=== PATIENT | female | born 1995 | race Caucasian/White ===

== ENCOUNTER 2017-11-21 17:19 | Inpatient (IN) | payer OTHER ==
[2017-11-21] MEDS ORDERED: IPRATROPIUM BROMIDE 0.02% NEB 0.5 MG/2.5 ML AMPUL NEB ONE (17:34)
[2017-11-21] MEDS ORDERED: MAGNESIUM SULFATE/D5W 1 GM/100 ML RTUPB IV ONE (17:34)
[2017-11-21] MEDS ORDERED: LEVALBUTEROL HCL NEB 1.25 MG/3 ML AMPUL NEB ONE (17:34)
[2017-11-21] MEDS ORDERED: NORMAL SALINE 1000 ML 1,000 ML IV ONE (17:40)
--- NOTE | 2017-11-21 17:42 | ER Document Report ---
ED Medical Screen (RME) - General Chief Complaint: Asthma Exacerbation Stated Complaint: BREATHING PROBLEMS Time Seen by Provider: 11/21/17 17:33 TRAVEL OUTSIDE OF THE [place] IN LAST 30 DAYS: No - HPI Notes: 11/21/17 17:41 History of asthma usually is admitted once a year in [place] during March states recently moved to [place] difficulty breathing the last few days found to be hypoxic in triage improved with oxygen denies any chest pain - Related Data Allergies/Adverse Reactions: albuterol Allergy (Verified 11/21/17 17:25) codeine Allergy (Verified 11/21/17 17:25) Past Medical History - Social History Frequency of alcohol use: None Drug Abuse: None Pulmonary Medical History: Reports: Hx Asthma Renal/ Medical History: Denies: Hx Peritoneal Dialysis Review of Systems - Review of Systems Respiratory: Cough, Short of breath -: Yes All other systems reviewed and negative Physical Exam - Vital signs Vitals: Temp Pulse Resp BP Pulse Ox 98.8 F 114 H 18 152/89 H 85 L 11/21/17 17:26 11/21/17 17:26 11/21/17 17:26 11/21/17 17:26 11/21/17 17:26 - Respiratory Respiratory status: Respiratory distress Chest status: Nontender, Accessory muscle use Breath sounds: Wheezing Chest palpation: Normal - Cardiovascular Rhythm: Regular, Tachycardia Heart sounds: Normal auscultation Course - Vital Signs Vital signs: Temp Pulse Resp BP Pulse Ox 98.8 F 95 18 152/89 H 100 11/21/17 17:26 11/21/17 17:27 11/21/17 17:26 11/21/17 17:26 11/21/17 17:27
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
[2017-11-21] MEDS ORDERED: METHYLPREDNISOLONE INJ 125 MG/2 ML SDV IV ONE (18:10)
[2017-11-21 18:12] LABS: ABSOLUTE BASOPHILS # (AUTO) 0.1 10^3/uL (0.0-0.2); ABSOLUTE EOSINOPHILS # (AUTO) 0.1 10^3/uL (0.0-0.6); ABSOLUTE LYMPHOCYTES (AUTO) 2.8 10^3/uL (0.5-4.7); ABSOLUTE MONOCYTES (AUTO) 0.6 10^3/uL (0.1-1.4); ABSOLUTE NEUT (AUTO) 3.2 10^3/uL (1.7-8.2); BASOPHILS % (AUTO) 0.9 % (0-2); EOSINOPHILS % (AUTO) 1.4 % (0-6); HEMATOCRIT 39.4 % (36.0-47.0); HEMOGLOBIN 13.8 g/dL (12.0-15.5); MEAN CORPUSCULAR HGB CONC 35.1 g/dL (32.0-36.0); MEAN CORPUSCULAR VOLUME 89 fl (80-97); MONOCYTES % (AUTO) 8.2 % (3-13); PLATELET COUNT 316 10^3/uL (150-450); RED BLOOD COUNT 4.45 10^6/uL (3.72-5.28); SEGMENTED NEUTROPHILS % (AUTO) 47.5 % (42-78); TOTAL CELLS COUNTED % (AUTO) 100 %; WHITE BLOOD COUNT 6.7 10^3/uL (4.0-10.5)
[2017-11-21 18:32] LABS: ANION GAP 13 (5-19); BLOOD UREA NITROGEN 9 mg/dL (7-20); CARBON DIOXIDE 21 mmol/L (22-30); CHLORIDE 108 mmol/L (98-107); GLUCOSE 103 mg/dL (75-110); POTASSIUM 3.6 mmol/L (3.6-5.0); SODIUM 141.9 mmol/L (137-145)
[2017-11-21] MEDS ORDERED: NORMAL SALINE 1000 ML 1,000 ML IV PRN (18:57)
--- NOTE | 2017-11-21 18:57 | RADIOLOGY REPORT (SQ) ---
EXAM DESCRIPTION: CHEST SINGLE VIEW COMPLETED DATE/TIME: 11/21/2017 6:42 pm REASON FOR STUDY: shortness of breath COMPARISON: None. EXAM PARAMETERS: NUMBER OF VIEWS: One view. TECHNIQUE: Single frontal radiographic view of the chest acquired. RADIATION DOSE: NA LIMITATIONS: None. FINDINGS: LUNGS AND PLEURA: No opacities, masses or pneumothorax. No pleural effusion. MEDIASTINUM AND HILAR STRUCTURES: No masses. Contour normal. HEART AND VASCULAR STRUCTURES: Heart normal in size. Normal vasculature. BONES: No acute findings. HARDWARE: None in the chest. OTHER: No other significant finding. IMPRESSION: NO ACUTE RADIOGRAPHIC FINDING IN THE CHEST. TECHNICAL DOCUMENTATION: JOB ID: [id number]- All Rights Reserved Reading location - IP/workstation name: [email or web address]
[2017-11-21] MEDS: METHYLPREDNISOLONE INJ 125 MG/2 ML SDV IV SCH (21:08)
[2017-11-21] MEDS: FAMOTIDINE 20 MG TABLET PO SCH (21:08)
[2017-11-21] MEDS: ACETAMINOPHEN 325 MG TABLET PO PRN (21:08)
[2017-11-21] MEDS: LEVALBUTEROL HCL NEB 1.25 MG/3 ML AMPUL NEB SCH (21:25)
[2017-11-22] MEDS: LEVALBUTEROL HCL NEB 1.25 MG/3 ML AMPUL NEB SCH ×5 (00:06→23:51)
[2017-11-22 04:44] LABS: ABSOLUTE LYMPHOCYTES (AUTO) 0.6 10^3/uL (0.5-4.7); ABSOLUTE NEUT (AUTO) 5.2 10^3/uL (1.7-8.2); BASOPHILS % (AUTO) 0.1 % (0-2); HEMATOCRIT 36.7 % (36.0-47.0); HEMOGLOBIN 12.8 g/dL (12.0-15.5); LYMPHOCYTES % (AUTO) 10.8 % (13-45); MEAN CORPUSCULAR HEMOGLOBIN 31.2 pg (27.0-33.4); MEAN CORPUSCULAR HGB CONC 34.9 g/dL (32.0-36.0); MEAN CORPUSCULAR VOLUME 89 fl (80-97); MONOCYTES % (AUTO) 0.7 % (3-13); PLATELET COUNT 261 10^3/uL (150-450); RED BLOOD COUNT 4.11 10^6/uL (3.72-5.28); RED CELL DISTRIBUTION WIDTH 12.2 % (11.5-14.0); SEGMENTED NEUTROPHILS % (AUTO) 88.4 % (42-78); TOTAL CELLS COUNTED % (AUTO) 100 %; WHITE BLOOD COUNT 5.8 10^3/uL (4.0-10.5)
[2017-11-22 05:00] LABS: ANION GAP 14 (5-19); BLOOD UREA NITROGEN 8 mg/dL (7-20); CALCIUM 9.6 mg/dL (8.4-10.2); CARBON DIOXIDE 16 mmol/L (22-30); CHLORIDE 110 mmol/L (98-107); GLUCOSE 178 mg/dL (75-110); POTASSIUM 4.2 mmol/L (3.6-5.0); SODIUM 139.8 mmol/L (137-145)
[2017-11-22] MEDS: METHYLPREDNISOLONE INJ 125 MG/2 ML SDV IV SCH ×3 (05:02→17:38)
[2017-11-22] MEDS ORDERED: METHYLPREDNISOLONE INJ 125 MG/2 ML SDV IV SCH (07:09)
--- NOTE | 2017-11-22 08:14 | EKG REPORT ---
SEVERITY:- NORMAL ECG - SINUS RHYTHM : Confirmed by: Annabella Cortes MD 22-Nov-2017 08:13:26
[2017-11-22] MEDS: FAMOTIDINE 20 MG TABLET PO SCH ×2 (09:08→21:28)
[2017-11-22] MEDS: ENOXAPARIN SODIUM INJ 40 MG/0.4 ML DISP.SYRIN SUBCUT SCH (09:08)
--- NOTE | 2017-11-22 09:09 | PDOC PROGRESS REPORT ---
Subjective Progress Note for:: 11/22/17 Subjective:: Patient is feeling better Still patient wheezing Patient O2 sat is running 100% on 2 L nasal cannula Patient's denied any chest pain denied any short of breath No fever no chills Reason For Visit: ASTHMA ACUTE Physical Exam Vital Signs: Temp Pulse Resp BP Pulse Ox 98.2 F 110 H 18 108/55 L 100 11/22/17 07:14 11/22/17 07:40 11/22/17 07:40 11/22/17 07:14 11/22/17 07:40 Pulse Oximeter Continuous Start: 11/21/17 19: 12 Freq: RTQ4 Status: Active Document 11/22/17 07:40 TPO (Rec: 11/22/17 07:52 TPO [email or web address]) Pulse Oximetry Assessment Oxygen Saturation (92-100) 100 Oxygen Flow Rate (L/min) 2 Oxygen Delivery Method Nasal Cannula Fraction of Inspired Oxygen (FIO2) 28 Equipment Usage Equipment in Use Continuous SpO2 Machine # 8 Intake & Output 11/21/17 11/22/17 11/23/17 06:59 06:59 06:59 Intake Total 1450 Balance 1450 Weight 65.8 kg General appearance: PRESENT: no acute distress, well-developed, well-nourished Head exam: PRESENT: atraumatic, normocephalic Eye exam: PRESENT: conjunctiva pink, EOMI, PERRLA. ABSENT: scleral icterus Ear exam: PRESENT: normal external ear exam Mouth exam: PRESENT: moist, tongue midline Neck exam: PRESENT: full ROM. ABSENT: carotid bruit, JVD, lymphadenopathy, thyromegaly Respiratory exam: PRESENT: wheezes Cardiovascular exam: PRESENT: RRR. ABSENT: diastolic murmur, rubs, systolic murmur Pulses: PRESENT: normal dorsalis pedis pul, +2 pedal pulses bilateral Vascular exam: PRESENT: normal capillary refill GI/Abdominal exam: PRESENT: normal bowel sounds, soft. ABSENT: distended, guarding, mass, organolmegaly, rebound, tenderness Rectal exam: PRESENT: deferred Musculoskeletal exam: PRESENT: ambulatory Neurological exam: PRESENT: alert, awake, oriented to person, oriented to place , oriented to time, oriented to situation, CN II-XII grossly intact. ABSENT: motor sensory deficit Psychiatric exam: PRESENT: appropriate affect, normal mood. ABSENT: homicidal ideation, suicidal ideation Skin exam: PRESENT: dry, intact, warm. ABSENT: cyanosis, rash Results Laboratory Results: 11/22/17 03:56 11/22/17 03:56 11/22/17 11/22/17 03:56 03:56 WBC 5.8 RBC 4.11 Hgb 12.8 Hct 36.7 MCV 89 MCH 31.2 MCHC 34.9 RDW 12.2 Plt Count 261 Seg Neutrophils % 88.4 H Lymphocytes % 10.8 L Monocytes % 0.7 L Eosinophils % 0.0 Basophils % 0.1 Absolute Neutrophils 5.2 Absolute Lymphocytes 0.6 Absolute Monocytes 0.0 L Absolute Eosinophils 0.0 Absolute Basophils 0.0 Sodium 139.8 Potassium 4.2 Chloride 110 H Carbon Dioxide 16 L Anion Gap 14 BUN 8 Creatinine 0.46 L Est GFR ( Amer) > 60 Est GFR (Non-Af Amer) > 60 Glucose 178 H Calcium 9.6 Magnesium 2.2 Impressions: Chest X-Ray 11/21/17 17:46 IMPRESSION: NO ACUTE RADIOGRAPHIC FINDING IN THE CHEST. Assessment & Plan - Diagnosis (1) Asthma exacerbation Qualifiers: Asthma severity: severe Asthma persistence: unspecified Qualified Code(s) : J45.901 - Unspecified asthma with (acute) exacerbation Is this a current diagnosis for this admission?: Yes Plan: Continuous IV Solu-Medrol Continues to nebulizer treatments Patient's currently on 2 L nasal cannula Consult the pulmonary due to the severity of the asthma (2) Hypoxia Is this a current diagnosis for this admission?: Yes Plan: Most likely due to the above conditions Chest d-dimer is negative Continues to nebulizer treatments Will get the EKG because of the patient's pulse was running little high most likely due to the nebulizer treatments - Time Time Spent with patient: 15-24 minutes Medications reviewed and adjusted accordingly: Yes Anticipated discharge: Home Within: Other - Inpatient Certification Medical Necessity: Significant Comorbidiites Make Outpatient Treatment Too Risky , Need For IV Fluids Post Hospital Care: D/C Supervisor Edging Documentation - Plan Summary Plan Summary: Discussed with the patient and her regarding the patient's current conditions consult the pulmonary
[2017-11-22] MEDS: ACETAMINOPHEN 325 MG TABLET PO PRN ×3 (09:19→21:28)
[2017-11-22] MEDS ORDERED: LEVALBUTEROL HCL NEB 1.25 MG/3 ML AMPUL NEB ONE (11:59)
[2017-11-22 12:11] LABS: FREE T3 3.31 pg/mL (2.77-5.27); FREE T4 (FREE THYROXINE) 0.97 ng/dL (0.78-2.19)
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
[2017-11-22 12:24] LABS: THYROID STIMULATING HORMONE 0.6 uIU/mL (0.47-4.68)
[2017-11-22 12:27] LABS: ARTERIAL BLOOD BASE EXCESS -5.2 mmol/L; ARTERIAL BLOOD HCO3 18.3 mmol/L (20-24); ARTERIAL BLOOD PCO2 29.8 mmHg (35-45); ARTERIAL BLOOD PH 7.41 (7.35-7.45); ARTERIAL BLOOD PO2 150.9 mmHg (80-100); ARTERIAL BLOOD TOTAL CO2 19.2 mmol/L (21-25)
[2017-11-22 12:28] LABS: ARTERIAL BLOOD FIO2 2L
[2017-11-22] MEDS: BUDESONIDE NEB 0.5 MG/2 ML AMPUL NEB SCH ×2 (14:03→19:54)
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
--- NOTE | 2017-11-22 16:05 | RADIOLOGY REPORT (SQ) ---
EXAM DESCRIPTION: CT HEAD WITHOUT COMPLETED DATE/TIME: 11/22/2017 3:56 pm REASON FOR STUDY: Headache And history of the fall COMPARISON: None. TECHNIQUE: Axial images acquired through the brain without intravenous contrast. Images reviewed wi th bone, brain and subdural windows. Images stored on PACS. All CT scanners at this facility use dose modulation, iterative reconstruction, and/or weight based d osing when appropriate to reduce radiation dose to as low as reasonably achievable (ALARA). [facility]: Dose Right [facility]: CareDose [facility]: Dose Right [facility]: Teradose 4D [facility]: VectorLearning RADIATION DOSE: CT Rad equipment meets quality standard of care and radiation dose reduction techniq ues were employed. CTDIvol: 48.6 mGy. DLP: 905 mGy-cm. mGy. LIMITATIONS: None. FINDINGS: VENTRICLES: Normal size and contour. CEREBRUM: No masses. No hemorrhage. No midline shift. No evidence for acute infarction. Normal gra y/white matter differentiation. No areas of low density in the white matter. CEREBELLUM: No masses. No hemorrhage. No alteration of density. No evidence for acute infarction. EXTRAAXIAL SPACES: No fluid collections. No masses. ORBITS AND GLOBE: No intra- or extraconal masses. Normal contour of globe without masses. CALVARIUM: No fracture. PARANASAL SINUSES: No fluid or mucosal thickening. SOFT TISSUES: No mass or hematoma. OTHER: No other significant finding. IMPRESSION: NORMAL BRAIN CT WITHOUT CONTRAST. EVIDENCE OF ACUTE STROKE: NO. COMMENT: Quality ID # [id number]: Final reports with documentation of one or more dose reduction techniques (e.g., Automated exposure control, adjustment of the mA and/or kV according to patient size, use of iterative reconstruction technique) TECHNICAL DOCUMENTATION: JOB ID: [id number] [employer]- All Rights Reserved Reading location - IP/workstation name: [email or web address]
--- NOTE | 2017-11-22 19:52 | EKG REPORT ---
SEVERITY:- BORDERLINE ECG - SINUS TACHYCARDIA BORDERLINE T ABNORMALITIES, ANT-LAT LEADS : Confirmed by: Annabella Cortes MD 22-Nov-2017 19:51:32
[2017-11-23] MEDS ORDERED: ZOLPIDEM TARTRATE 5 MG TABLET PO ONE (00:30)
[2017-11-23] MEDS: METHYLPREDNISOLONE INJ 125 MG/2 ML SDV IV SCH ×3 (01:50→17:27)
[2017-11-23 05:23] LABS: ABSOLUTE LYMPHOCYTES (AUTO) 0.8 10^3/uL (0.5-4.7); ABSOLUTE MONOCYTES (AUTO) 0.4 10^3/uL (0.1-1.4); ABSOLUTE NEUT (AUTO) 13.6 10^3/uL (1.7-8.2); HEMATOCRIT 35.3 % (36.0-47.0); HEMOGLOBIN 12.2 g/dL (12.0-15.5); LYMPHOCYTES % (AUTO) 5.3 % (13-45); MEAN CORPUSCULAR HEMOGLOBIN 30.9 pg (27.0-33.4); MEAN CORPUSCULAR HGB CONC 34.5 g/dL (32.0-36.0); MEAN CORPUSCULAR VOLUME 90 fl (80-97); PLATELET COUNT 280 10^3/uL (150-450); RED BLOOD COUNT 3.94 10^6/uL (3.72-5.28); RED CELL DISTRIBUTION WIDTH 12.2 % (11.5-14.0); SEGMENTED NEUTROPHILS % (AUTO) 91.7 % (42-78); TOTAL CELLS COUNTED % (AUTO) 100 %
[2017-11-23 05:24] LABS: WHITE BLOOD COUNT 14.8 10^3/uL (4.0-10.5)
[2017-11-23 05:38] LABS: BLOOD UREA NITROGEN 12 mg/dL (7-20); CALCIUM 9.6 mg/dL (8.4-10.2); CARBON DIOXIDE 20 mmol/L (22-30); GLUCOSE 133 mg/dL (75-110); POTASSIUM 4.8 mmol/L (3.6-5.0); SODIUM 141.2 mmol/L (137-145)
[2017-11-23 05:39] LABS: ANION GAP 12 (5-19); CHLORIDE 109 mmol/L (98-107)
[2017-11-23] MEDS: BUDESONIDE NEB 0.5 MG/2 ML AMPUL NEB SCH ×2 (07:49→19:36)
[2017-11-23] MEDS: LEVALBUTEROL HCL NEB 1.25 MG/3 ML AMPUL NEB SCH (07:49)
--- NOTE | 2017-11-23 08:56 | RADIOLOGY REPORT (SQ) ---
EXAM DESCRIPTION: CHEST 2 VIEWS COMPLETED DATE/TIME: 11/23/2017 8:46 am REASON FOR STUDY: sob COMPARISON: None. EXAM PARAMETERS: NUMBER OF VIEWS: two views TECHNIQUE: Digital Frontal and Lateral radiographic views of the chest acquired. RADIATION DOSE: NA LIMITATIONS: none FINDINGS: LUNGS AND PLEURA: No opacities, masses or pneumothorax. No pleural effusion. MEDIASTINUM AND HILAR STRUCTURES: No masses or contour abnormalities. HEART AND VASCULAR STRUCTURES: Heart normal size. No evidence for failure. BONES: No acute findings. HARDWARE: None in the chest. OTHER: Retained oral contrast in the visualized stomach. This finding may be secondary to gastroint estinal examination. IMPRESSION: 1. NO ACUTE RADIOGRAPHIC FINDING IN THE CHEST. TECHNICAL DOCUMENTATION: JOB ID: [id number] [employer]- All Rights Reserved Reading location - IP/workstation name: [email or web address]
--- NOTE | 2017-11-23 09:00 | ST Inp Modified Barium Swallow ---
Medical Diagnosis - Medical Diagnoses Medical Diagnosis Description & ICD-10 Code(s): asthma exacerbation, dysphagia R13.10 ST Inpatient [facility] [place] - General Date: 11/23/17 Date of Onset: 11/21/17 - History History Obtained From: Other - EMR -: Medical - Patient was admitted 11/21/17 due to shortness of breath. PMH includes asthma and gastroparesis. Patient reports no difficulty with eating or swallowing, but does state that she recently had to stop eating due to O2 levels dropping into the 70s during a meal. Medications: Medications Reviewed Allergies: Refer to medical record - patient additionally stated she was allergic to coconut - Subjective Current Nutritional Means: PO Current PO Diet: Regular Current Symptoms: Coughing Pain: Patient reports, 0/5 - Objective Assessment: Upright, Left Lateral - Food Trials Food Trials Used: Thin liquids, Pureed, Regular The Patient: Was Able to Self Feed - Assessment Labial Function: Within Normal Limits Lingual Function: Within Normal Limits Mandibular Function: Within Normal Limits Dentition: Full Laryngeal Function: clear voicing - Pharyngeal Stage Initiation of Pharyngeal Stage: Normal Decreased Laryngeal Elevation: No Reduced Velo-Pharyngeal Closure: no Reduced Pressure Generation: No Reduced Tongue Base Retraction: No Pre-Swallowing Pooling in Valleculae: None Pre-Swallowing Pooling in Pyriforms: None Reduced Thyro-Hyiod Approximation: No Reduced Epiglottic Excursion: No Reduced Pharyngeal Peristalsis: No Post Swallow Residuals in Valleculae: None Post Swallow Residuals in Pyriforms: None - Impression/Summary Laryngeal Penetration: No Tracheal Aspiration: no Patient Presents With: Normal swallow at eval Risk of Aspiration: Minimal - Recommendations Solid Diet Recommendations: Regular Liquid Diet Recommendations: Thin Regular Diet: Yes Strict Aspitarion Precautions: No Dysphagia Therapy with AGRICULTURAL ENGINEER: No - Time Total Time: 20 Total Timed Minutes: 20
--- NOTE | 2017-11-23 09:12 | RADIOLOGY REPORT (SQ) ---
EXAM DESCRIPTION: COLLEEN SWALLOW COMPLETED DATE/TIME: 11/23/2017 8:46 am REASON FOR STUDY: dysphagia exacerbation of asthma Drop in oxygen saturation during meal COMPARISON: None. TECHNIQUE: Videofluoroscopic swallowing examination was performed in conjunction with speech patholo gy. Videofluoroscopic imaging was obtained and reviewed and these are the findings: RADIATION DOSE: 44 seconds of fluoroscopy was used. 1 images saved to PACS. LIMITATIONS: None FINDINGS: The patient was brought into the fluoro room and placed upright on a modified barium swall ow chair. The patient was then given multiple consistencies mixed with barium to swallow under live fluoroscopic video guidance. According to the Speech Pathologist there was no penetration or aspirat ion. The patient had to take multiple breaks during the study due to shortness of breath IMPRESSION: NO EVIDENCE OF PENETRATION OR ASPIRATION. PATIENT REQUIRED MULTIPLE BREAKS DURING THE S TUDY DUE TO SHORTNESS OF BREATH.PLEASE SEE SPEECH PATHOLOGIST REPORT FOR OTHER FINDINGS AND RECOMMEND ATIONS. COMMENT: Quality ID [id number]: Final reports for procedures using fluoroscopy that document radiation exp osure indices, or exposure time and number of fluorographic images (if radiation exposure indices are not available) TECHNICAL DOCUMENTATION: JOB ID: [id number] [employer]- All Rights Reserved Reading location - IP/workstation name: [email or web address]
[2017-11-23] MEDS: ENOXAPARIN SODIUM INJ 40 MG/0.4 ML DISP.SYRIN SUBCUT SCH (10:05)
[2017-11-23] MEDS: FAMOTIDINE 20 MG TABLET PO SCH ×2 (10:05→21:34)
[2017-11-23] MEDS: CEFUROXIME 500 MG TABLET PO SCH ×2 (10:06→21:34)
--- NOTE | 2017-11-23 13:10 | PDOC PROGRESS REPORT ---
Subjective Progress Note for:: 11/23/17 Subjective:: Patient is currently doing fair Patient's denied any chest pain denied any shortness of the breath Patient's I believe the nebulizer makes the heart rate goes up when the Xopenex Patient's have no wheezing today Discussed with the Dr. Miller and suggest the continues to current medications patient's d-dimer is negative and no sign of any PEAs per discussed with the Dr. Miller Discussed with the patient and the family at the bedside Patient with some hyperventilation syndromes yesterday was complained of some tingling and numbness and a CT of the head was done was negative Reason For Visit: ASTHMA ACUTE Physical Exam Vital Signs: Temp Pulse Resp BP Pulse Ox 98.3 F 90 16 98/51 L 100 11/23/17 04:46 11/23/17 07:50 11/23/17 07:50 11/23/17 04:46 11/23/17 07:50 Pulse Oximeter Continuous Start: 11/21/17 19: 12 Freq: RTQ4 Status: Active Document 11/23/17 07:50 HCR (Rec: 11/23/17 08:02 HCR [id number]) Pulse Oximetry Assessment Oxygen Saturation (92-100) 100 Oxygen Flow Rate (L/min) 2 Oxygen Delivery Method Nasal Cannula Equipment Usage Equipment in Use Continuous SpO2 Machine # 8 Intake & Output 11/22/17 11/23/17 11/24/17 06:59 06:59 06:59 Intake Total 1450 836 Balance 1450 836 Weight 65.8 kg 65.3 kg General appearance: PRESENT: no acute distress, well-developed, well-nourished Head exam: PRESENT: atraumatic, normocephalic Eye exam: PRESENT: conjunctiva pink, EOMI, PERRLA. ABSENT: scleral icterus Ear exam: PRESENT: normal external ear exam Mouth exam: PRESENT: moist, tongue midline Neck exam: PRESENT: full ROM. ABSENT: carotid bruit, JVD, lymphadenopathy, thyromegaly Respiratory exam: PRESENT: clear to auscultation jon Cardiovascular exam: PRESENT: RRR. ABSENT: diastolic murmur, rubs, systolic murmur Pulses: PRESENT: normal dorsalis pedis pul, +2 pedal pulses bilateral Vascular exam: PRESENT: normal capillary refill GI/Abdominal exam: PRESENT: normal bowel sounds, soft. ABSENT: distended, guarding, mass, organolmegaly, rebound, tenderness Rectal exam: PRESENT: deferred Extremities exam: ABSENT: pedal edema Musculoskeletal exam: PRESENT: ambulatory Neurological exam: PRESENT: alert, awake, oriented to person, oriented to place , oriented to time, oriented to situation, CN II-XII grossly intact. ABSENT: motor sensory deficit Psychiatric exam: PRESENT: appropriate affect, normal mood. ABSENT: homicidal ideation, suicidal ideation Skin exam: PRESENT: dry, intact, warm. ABSENT: cyanosis, rash Results Laboratory Results: 11/23/17 04:14 11/23/17 04:14 11/23/17 11/23/17 04:14 04:14 WBC 14.8 H D RBC 3.94 Hgb 12.2 Hct 35.3 L MCV 90 MCH 30.9 MCHC 34.5 RDW 12.2 Plt Count 280 Seg Neutrophils % 91.7 H Lymphocytes % 5.3 L Monocytes % 3.0 Eosinophils % 0.0 Basophils % 0.0 Absolute Neutrophils 13.6 H Absolute Lymphocytes 0.8 Absolute Monocytes 0.4 Absolute Eosinophils 0.0 Absolute Basophils 0.0 Sodium 141.2 Potassium 4.8 Chloride 109 H Carbon Dioxide 20 L Anion Gap 12 BUN 12 Creatinine 0.49 L Est GFR ( Amer) > 60 Est GFR (Non-Af Amer) > 60 Glucose 133 H Calcium 9.6 Magnesium 2.1 Impressions: Head CT 11/22/17 00:00 IMPRESSION: NORMAL BRAIN CT WITHOUT CONTRAST. EVIDENCE OF ACUTE STROKE: NO. Chest X-Ray 11/23/17 00:00 IMPRESSION: 1. NO ACUTE RADIOGRAPHIC FINDING IN THE CHEST. Modified Barium Swallow 11/23/17 00:00 IMPRESSION: NO EVIDENCE OF PENETRATION OR ASPIRATION. PATIENT REQUIRED MULTIPLE BREAKS DURING THE STUDY DUE TO SHORTNESS OF BREATH.PLEASE SEE SPEECH PATHOLOGIST REPORT FOR OTHER FINDINGS AND RECOMMENDATIONS. Assessment & Plan - Diagnosis (1) Asthma exacerbation Qualifiers: Asthma severity: severe Asthma persistence: unspecified Qualified Code(s) : J45.901 - Unspecified asthma with (acute) exacerbation Is this a current diagnosis for this admission?: Yes Plan: Reduce the IV steroid use as needed nebulizerFollow with the pulmonary (2) Hypoxia Is this a current diagnosis for this admission?: Yes Plan: Most likely from the asthma currently getting better will try to wean off from the oxygen's (3) Sinus tachycardia Is this a current diagnosis for this admission?: Yes Plan: Patient's TSH and free T4 is all negative will get the echocardiogram (4) Gastroparesis Is this a current diagnosis for this admission?: Yes Plan: Continues of Pepcid - Time Time Spent with patient: 15-24 minutes Medications reviewed and adjusted accordingly: Yes Anticipated discharge: Home Within: Other - Inpatient Certification Medical Necessity: Need Close Monitoring Due to Risk of Patient Decompensation 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
[2017-11-23] MEDS ORDERED: ONDANSETRON 4 MG TAB.RAPDIS ONE (15:09)
--- NOTE | 2017-11-23 17:14 | Pulmonary Function Test ---
Pulmonary Function Test Date of Procedure:: 11/23/17 INDICATION:: Dyspnea Referring Provider: Dr. Francois - Report Spirometry: FVC 3.73 L 90% FEV1 3.46 L 94% FEV1/FVC % 93 predicted 89 FEF 25-75% 4.87 L 108% Impression: Normal spirometry
--- NOTE | 2017-11-23 18:02 | XCELERA REPORT ---
[address] [address] Transthoracic Echocardiogram Report Name: NETO BOJORQUEZ Age: 22 yrs Gender: Female : 1995 Patient Status: Inpatient Patient Location: [address] [place] [address] Study Date: 11/23/2017 11:00 AM Height: 69 in Weight: 143 lb BSA: 1.8 m2 Procedure: A complete two-dimensional transthoracic echocardiogram was performed (2D, M-mode, spectral and color flow Doppler). The study was technically adequate with some images being suboptimal in quality. Reason For Study: [email or web address] Ordering Physician: MARVIN ROGERS Performed By: Sindi Hairston Interpretation Summary Normal LVEF. No significant valvular abnormalities noted. No pericardial effusion noted. All chamber sizes are within normal limits. MMode/2D Measurements & Calculations RVDd: 3.2 cm LVIDd: 4.6 cm FS: 40.2 % Ao root diam: 2.3 cm IVSd: 0.74 cm LVIDs: 2.7 cm EDV(Teich): 96.8 ml Ao root area: 4.0 cm2 LVPWd: 0.72 cm ESV(Teich): 28.1 ml LA dimension: 2.9 cm EF(Teich): 70.9 % Doppler Measurements & Calculations MV E max luis: MV P1/2t max luis: Ao V2 max: LV V1 max P.2 cm/sec 98.7 cm/sec 150.9 cm/sec 6.8 mmHg MV A max luis: MV P1/2t: 64.1 msec Ao max PG: LV V1 max: 71.6 cm/sec MVA(P1/2t): 3.4 cm2 9.1 mmHg 130.3 cm/sec MV E/A: 1.4 MV dec slope: 450.9 cm/sec2 MV dec time: 0.21 sec PA V2 max: MV P1/2t-pr_phl: 110.6 cm/sec 64.1 msec PA max P.9 mmHg Left Ventricle The left ventricle is grossly normal size. There is normal left ventricular wall thickness. The left ventricular ejection fraction is normal. Doppler measurements suggest normal left ventricular diastolic function. No regional wall motion abnormalities noted. Right Ventricle The right ventricle is grossly normal size. There is normal right ventricular wall thickness. The right ventricular systolic function is normal. Atria The right atrium is normal in size. The left atrial size is normal. The interatrial septum is difficult to see, but appears to be grossly normal. Mitral Valve The mitral valve is grossly normal. There is no mitral valve stenosis. There is no mitral regurgitation noted. Aortic Valve The aortic valve is grossly normal. There is no aortic valve stenosis. No aortic regurgitation is present. Tricuspid Valve The tricuspid valve is not well visualized, but is grossly normal. There is no tricuspid stenosis. There is a trace or physiologic amount of tricuspid regurgitation. Tricuspid regurgitation jet envelope not well defined to measure RV systolic pressure accurately. Pulmonic Valve The pulmonic valve is not well seen, but is grossly normal. Great Vessels The aortic root is not well visualized but is probably normal size. The inferior vena cava appeared normal. Effusions There is no pericardial effusion. : MARVIN ROGERS > Karen Pérez
[2017-11-23] MEDS: ONDANSETRON 4 MG TAB.RAPDIS PO PRN (21:33)
[2017-11-24] MEDS: METHYLPREDNISOLONE INJ 125 MG/2 ML SDV IV SCH (02:30)
[2017-11-24 04:33] LABS: ABSOLUTE LYMPHOCYTES (AUTO) 1.4 10^3/uL (0.5-4.7); ABSOLUTE MONOCYTES (AUTO) 0.5 10^3/uL (0.1-1.4); ABSOLUTE NEUT (AUTO) 12.6 10^3/uL (1.7-8.2); BASOPHILS % (AUTO) 0.1 % (0-2); HEMATOCRIT 36.3 % (36.0-47.0); HEMOGLOBIN 12.6 g/dL (12.0-15.5); LYMPHOCYTES % (AUTO) 9.7 % (13-45); MEAN CORPUSCULAR HEMOGLOBIN 31.3 pg (27.0-33.4); MEAN CORPUSCULAR HGB CONC 34.8 g/dL (32.0-36.0); MEAN CORPUSCULAR VOLUME 90 fl (80-97); MONOCYTES % (AUTO) 3.3 % (3-13); PLATELET COUNT 300 10^3/uL (150-450); RED BLOOD COUNT 4.04 10^6/uL (3.72-5.28); RED CELL DISTRIBUTION WIDTH 12.2 % (11.5-14.0); SEGMENTED NEUTROPHILS % (AUTO) 86.9 % (42-78); TOTAL CELLS COUNTED % (AUTO) 100 %; WHITE BLOOD COUNT 14.5 10^3/uL (4.0-10.5)
[2017-11-24 04:47] LABS: ANION GAP 9 (5-19); BLOOD UREA NITROGEN 18 mg/dL (7-20); CALCIUM 9.3 mg/dL (8.4-10.2); CARBON DIOXIDE 23 mmol/L (22-30); CHLORIDE 106 mmol/L (98-107); GLUCOSE 140 mg/dL (75-110); POTASSIUM 4.4 mmol/L (3.6-5.0); SODIUM 137.8 mmol/L (137-145)
[2017-11-24] MEDS ORDERED: METHYLPREDNISOLONE INJ 125 MG/2 ML SDV IV SCH (07:25)
[2017-11-24] MEDS ORDERED: METHYLPREDNISOLONE INJ 40 MG/1 ML SDV IV SCH (08:00)
[2017-11-24] MEDS: BUDESONIDE NEB 0.5 MG/2 ML AMPUL NEB SCH ×2 (08:01→20:01)
--- NOTE | 2017-11-24 08:44 | RADIOLOGY REPORT (SQ) ---
EXAM DESCRIPTION: CTA CHEST COMPLETED DATE/TIME: 11/23/2017 9:28 pm REASON FOR STUDY: hypoxia, desat COMPARISON: None. TECHNIQUE: CT scan of the chest performed using helical scanning technique with dynamic intravenous contrast injection. Images reviewed with lung, soft tissue and bone windows. Reconstructed coronal and sagittal MPR images reviewed. Additional 3 dimensional post-processing performed to develop Maximal Intensity Projection images (AR P). All images stored on PACS. All CT scanners at this facility use dose modulation, iterative reconstruction, and/or weight based d osing when appropriate to reduce radiation dose to as low as reasonably achievable (ALARA). [facility]: Dose Right [facility]: CareDose [facility]: Dose Right [facility]: Teradose 4D [facility]: ScriptPad CONTRAST TYPE AND DOSE: contrast/concentration: Isovue 350.00 mg/ml; Total Contrast Delivered: 60.0 ml; Total Saline Delivered: 62.4 ml Contrast bolus adequate for pulmonary arteries and aorta. RENAL FUNCTION: GFR > 60. RADIATION DOSE: CT Rad equipment meets quality standard of care and radiation dose reduction techniq ues were employed. CTDIvol: 3.3 - 14.3 mGy. DLP: 512 mGy-cm. . LIMITATIONS: None. FINDINGS: LUNGS AND PLEURA: No masses, infiltrates, or pneumothorax. No pleural effusions or pleura l calcifications. AORTA AND GREAT VESSELS: No aneurysm. No dissection. HEART: No pericardial effusion. No significant coronary artery calcifications. PULMONARY ARTERIES: No emboli visualized in the main pulmonary arteries or the segmental branches. HILAR AND MEDIASTINAL STRUCTURES: No identified masses or abnormal nodes. HARDWARE: None in the chest. UPPER ABDOMEN: No significant findings. Limited exam. THYROID AND OTHER SOFT TISSUES: No masses. No adenopathy. BONES: No acute or significant finding. 3D MIPS: Confirm above findings. OTHER: No other significant finding. IMPRESSION: NORMAL CTA OF THE CHEST. NO PULMONARY EMBOLI. COMMENT: Quality ID # [id number]: Final reports with documentation of one or more dose reduction techniques (e.g., Automated exposure control, adjustment of the mA and/or kV according to patient size, use of iterative reconstruction technique) TECHNICAL DOCUMENTATION: JOB ID: [id number] [employer]- All Rights Reserved Reading location - IP/workstation name: [email or web address]
[2017-11-24] MEDS: ENOXAPARIN SODIUM INJ 40 MG/0.4 ML DISP.SYRIN SUBCUT SCH (09:47)
[2017-11-24] MEDS: CEFUROXIME 500 MG TABLET PO SCH ×2 (09:47→21:33)
[2017-11-24] MEDS: FAMOTIDINE 20 MG TABLET PO SCH ×2 (09:47→21:33)
[2017-11-24] MEDS: ONDANSETRON 4 MG TAB.RAPDIS PO PRN (09:55)
--- NOTE | 2017-11-24 10:11 | PDOC PROGRESS REPORT ---
Subjective Progress Note for:: 11/24/17 Subjective:: Patient is currently doing much better Recent CT angiogram is negative for any acute finding Since echocardiogram is all stable Once the patient's nebulizers as needed patient's heart rate is all stable Patients walk without any problems This with the patient and the family on the bedside regarding the all the test reports Reason For Visit: ASTHMA ACUTE Physical Exam Vital Signs: Temp Pulse Resp BP Pulse Ox 98.7 F 74 18 88/45 L 98 11/24/17 07:15 11/24/17 08:01 11/24/17 08:01 11/24/17 07:15 11/24/17 08:01 Pulse Oximeter Continuous Start: 11/21/17 19: 12 Freq: RTQ4 Status: Active Document 11/24/17 08:01 HCR (Rec: 11/24/17 09:41 HCR [email or web address]) Pulse Oximetry Assessment Oxygen Saturation (92-100) 98 Oxygen Delivery Method Room Air Fraction of Inspired Oxygen (FIO2) 21 Equipment Usage Equipment in Use Continuous SpO2 Machine # 8 Intake & Output 11/23/17 11/24/17 11/25/17 06:59 06:59 06:59 Intake Total 836 2700 Balance 836 2700 Weight 65.3 kg 65.2 kg General appearance: PRESENT: no acute distress, well-developed, well-nourished Head exam: PRESENT: atraumatic, normocephalic Eye exam: PRESENT: conjunctiva pink, EOMI, PERRLA. ABSENT: scleral icterus Ear exam: PRESENT: normal external ear exam Mouth exam: PRESENT: moist, tongue midline Neck exam: PRESENT: full ROM. ABSENT: carotid bruit, JVD, lymphadenopathy, thyromegaly Respiratory exam: PRESENT: clear to auscultation jon Cardiovascular exam: PRESENT: RRR. ABSENT: diastolic murmur, rubs, systolic murmur Pulses: PRESENT: normal dorsalis pedis pul, +2 pedal pulses bilateral Vascular exam: PRESENT: normal capillary refill GI/Abdominal exam: PRESENT: normal bowel sounds, soft. ABSENT: distended, guarding, mass, organolmegaly, rebound, tenderness Rectal exam: PRESENT: deferred Extremities exam: ABSENT: pedal edema Musculoskeletal exam: PRESENT: ambulatory Neurological exam: PRESENT: alert, awake, oriented to person, oriented to place , oriented to time, oriented to situation, CN II-XII grossly intact. ABSENT: motor sensory deficit Psychiatric exam: PRESENT: appropriate affect, normal mood. ABSENT: homicidal ideation, suicidal ideation Skin exam: PRESENT: dry, intact, warm. ABSENT: cyanosis, rash Results Laboratory Results: 11/24/17 04:11 11/24/17 04:11 11/24/17 11/24/17 04:11 04:11 WBC 14.5 H RBC 4.04 Hgb 12.6 Hct 36.3 MCV 90 MCH 31.3 MCHC 34.8 RDW 12.2 Plt Count 300 Seg Neutrophils % 86.9 H Lymphocytes % 9.7 L Monocytes % 3.3 Eosinophils % 0.0 Basophils % 0.1 Absolute Neutrophils 12.6 H Absolute Lymphocytes 1.4 Absolute Monocytes 0.5 Absolute Eosinophils 0.0 Absolute Basophils 0.0 Sodium 137.8 Potassium 4.4 Chloride 106 Carbon Dioxide 23 Anion Gap 9 BUN 18 Creatinine 0.54 Est GFR ( Amer) > 60 Est GFR (Non-Af Amer) > 60 Glucose 140 H Calcium 9.3 Magnesium 2.0 11/22/17 08:00 Sputum Gram Stain - Final 11/22/17 08:00 Sputum Sputum Culture - Final Impressions: Head CT 11/22/17 00:00 IMPRESSION: NORMAL BRAIN CT WITHOUT CONTRAST. EVIDENCE OF ACUTE STROKE: NO. Chest X-Ray 11/23/17 00:00 IMPRESSION: 1. NO ACUTE RADIOGRAPHIC FINDING IN THE CHEST. Chest/Abdomen CTA 11/23/17 00:00 IMPRESSION: NORMAL CTA OF THE CHEST. NO PULMONARY EMBOLI. Modified Barium Swallow 11/23/17 00:00 IMPRESSION: NO EVIDENCE OF PENETRATION OR ASPIRATION. PATIENT REQUIRED MULTIPLE BREAKS DURING THE STUDY DUE TO SHORTNESS OF BREATH.PLEASE SEE SPEECH PATHOLOGIST REPORT FOR OTHER FINDINGS AND RECOMMENDATIONS. Assessment & Plan - Diagnosis (1) Asthma exacerbation Qualifiers: Asthma severity: severe Asthma persistence: unspecified Qualified Code(s) : J45.901 - Unspecified asthma with (acute) exacerbation Is this a current diagnosis for this admission?: Yes Plan: Currently all improving this continues to IV Solu-Medrol and put on the p.o. steroids (2) Hypoxia Is this a current diagnosis for this admission?: Yes Plan: Try to wean off from the oxygen's (3) Sinus tachycardia Is this a current diagnosis for this admission?: Yes Plan: CT angiogram is negative and echocardiogram is all stable most likely related to the nebulizer treatments (4) Gastroparesis Is this a current diagnosis for this admission?: Yes Plan: Start the patient on a PPI - Time Time Spent with patient: 15-24 minutes Medications reviewed and adjusted accordingly: Yes Anticipated discharge: Home Within: within 24 hours - Inpatient Certification Medical Necessity: Need Close Monitoring Due to Risk of Patient Decompensation 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
--- NOTE | 2017-11-24 14:20 | PDOC PROGRESS REPORT ---
Subjective Progress Note for:: 11/24/17 Subjective:: I am better Reason For Visit: ASTHMA ACUTE Physical Exam Vital Signs: Temp Pulse Resp BP Pulse Ox 98.7 F 74 18 88/45 L 98 11/24/17 07:15 11/24/17 08:01 11/24/17 08:01 11/24/17 07:15 11/24/17 08:01 Pulse Oximeter Continuous Start: 11/21/17 19: 12 Freq: RTQ4 Status: Active Document 11/24/17 08:01 HCR (Rec: 11/24/17 09:41 HCR [email or web address]) Pulse Oximetry Assessment Oxygen Saturation (92-100) 98 Oxygen Delivery Method Room Air Fraction of Inspired Oxygen (FIO2) 21 Equipment Usage Equipment in Use Continuous SpO2 Machine # 8 Intake & Output 11/23/17 11/24/17 11/25/17 06:59 06:59 06:59 Intake Total 836 2700 Balance 836 2700 Weight 65.3 kg 65.2 kg General appearance: PRESENT: no acute distress, cooperative, disheveled, well- developed, well-nourished Head exam: PRESENT: atraumatic, normocephalic Eye exam: PRESENT: EOMI. ABSENT: nystagmus, periorbital swelling, scleral icterus Mouth exam: PRESENT: moist, neck supple, tongue midline Neck exam: ABSENT: carotid bruit, JVD, lymphadenopathy, thyromegaly, tracheal deviation, tracheostomy Respiratory exam: PRESENT: prolonged expiratory phas, rhonchi, unlabored, wheezes. ABSENT: rales, retraction, stridor Cardiovascular exam: PRESENT: RRR, +S1, +S2 Pulses: PRESENT: normal radial pulses GI/Abdominal exam: PRESENT: soft. ABSENT: tenderness Extremities exam: ABSENT: calf tenderness, clubbing, joint swelling Musculoskeletal exam: ABSENT: deformity, dislocation Neurological exam: PRESENT: alert, awake Psychiatric exam: PRESENT: normal mood Skin exam: PRESENT: dry, warm Results Laboratory Results: 11/24/17 04:11 11/24/17 04:11 11/24/17 11/24/17 04:11 04:11 WBC 14.5 H RBC 4.04 Hgb 12.6 Hct 36.3 MCV 90 MCH 31.3 MCHC 34.8 RDW 12.2 Plt Count 300 Seg Neutrophils % 86.9 H Lymphocytes % 9.7 L Monocytes % 3.3 Eosinophils % 0.0 Basophils % 0.1 Absolute Neutrophils 12.6 H Absolute Lymphocytes 1.4 Absolute Monocytes 0.5 Absolute Eosinophils 0.0 Absolute Basophils 0.0 Sodium 137.8 Potassium 4.4 Chloride 106 Carbon Dioxide 23 Anion Gap 9 BUN 18 Creatinine 0.54 Est GFR ( Amer) > 60 Est GFR (Non-Af Amer) > 60 Glucose 140 H Calcium 9.3 Magnesium 2.0 11/22/17 08:00 Sputum Gram Stain - Final 11/22/17 08:00 Sputum Sputum Culture - Final Impressions: Head CT 11/22/17 00:00 IMPRESSION: NORMAL BRAIN CT WITHOUT CONTRAST. EVIDENCE OF ACUTE STROKE: NO. Chest X-Ray 11/23/17 00:00 IMPRESSION: 1. NO ACUTE RADIOGRAPHIC FINDING IN THE CHEST. Chest/Abdomen CTA 11/23/17 00:00 IMPRESSION: NORMAL CTA OF THE CHEST. NO PULMONARY EMBOLI. Modified Barium Swallow 11/23/17 00:00 IMPRESSION: NO EVIDENCE OF PENETRATION OR ASPIRATION. PATIENT REQUIRED MULTIPLE BREAKS DURING THE STUDY DUE TO SHORTNESS OF BREATH.PLEASE SEE SPEECH PATHOLOGIST REPORT FOR OTHER FINDINGS AND RECOMMENDATIONS. Assessment & Plan - Diagnosis (1) Asthma exacerbation Qualifiers: Asthma severity: severe Asthma persistence: unspecified Qualified Code(s) : J45.901 - Unspecified asthma with (acute) exacerbation Is this a current diagnosis for this admission?: Yes Plan: No evidence to substantiate vocal cord dysfunction at this time 6-minute walk peak flow meter (2) Hypoxia Is this a current diagnosis for this admission?: Yes Plan: Significant improvement
--- NOTE | 2017-11-24 14:22 | PDOC PROGRESS REPORT ---
Subjective Progress Note for:: 11/23/17 Subjective:: I am not as short of breath Reason For Visit: ASTHMA ACUTE Physical Exam Vital Signs: Temp Pulse Resp BP Pulse Ox 98.5 F 99 12 101/48 L 99 11/23/17 12:00 11/23/17 12:00 11/23/17 12:00 11/23/17 12:00 11/23/17 12:00 Pulse Oximeter Continuous Start: 11/21/17 19: 12 Freq: RTQ4 Status: Active Document 11/23/17 12:00 HCR (Rec: 11/23/17 13:42 HCR [id number]) Pulse Oximetry Assessment Oxygen Saturation (92-100) 97 Oxygen Delivery Method Room Air Fraction of Inspired Oxygen (FIO2) 21 Equipment Usage Equipment in Use Continuous SpO2 Machine # 8 Intake & Output 11/22/17 11/23/17 11/24/17 06:59 06:59 06:59 Intake Total 1450 836 Balance 1450 836 Weight 65.8 kg 65.3 kg General appearance: PRESENT: no acute distress, cooperative, disheveled, well- developed, well-nourished Head exam: PRESENT: atraumatic, normocephalic Eye exam: PRESENT: conjunctiva pale, EOMI. ABSENT: nystagmus, scleral icterus Mouth exam: PRESENT: moist, neck supple, tongue midline Neck exam: ABSENT: carotid bruit, JVD, lymphadenopathy, thyromegaly, tracheal deviation, tracheostomy Respiratory exam: PRESENT: prolonged expiratory phas, rhonchi, unlabored, wheezes. ABSENT: rales, retraction, stridor, tachypnea Cardiovascular exam: PRESENT: RRR, +S1, +S2 Pulses: PRESENT: normal radial pulses GI/Abdominal exam: PRESENT: soft. ABSENT: tenderness Extremities exam: ABSENT: calf tenderness, clubbing, joint swelling Musculoskeletal exam: ABSENT: deformity, dislocation Neurological exam: PRESENT: alert, awake Psychiatric exam: PRESENT: normal mood Skin exam: PRESENT: dry, warm Results Laboratory Results: 11/23/17 04:14 11/23/17 04:14 11/23/17 11/23/17 04:14 04:14 WBC 14.8 H D RBC 3.94 Hgb 12.2 Hct 35.3 L MCV 90 MCH 30.9 MCHC 34.5 RDW 12.2 Plt Count 280 Seg Neutrophils % 91.7 H Lymphocytes % 5.3 L Monocytes % 3.0 Eosinophils % 0.0 Basophils % 0.0 Absolute Neutrophils 13.6 H Absolute Lymphocytes 0.8 Absolute Monocytes 0.4 Absolute Eosinophils 0.0 Absolute Basophils 0.0 Sodium 141.2 Potassium 4.8 Chloride 109 H Carbon Dioxide 20 L Anion Gap 12 BUN 12 Creatinine 0.49 L Est GFR ( Amer) > 60 Est GFR (Non-Af Amer) > 60 Glucose 133 H Calcium 9.6 Magnesium 2.1 11/22/17 08:00 Sputum Gram Stain - Final 11/22/17 08:00 Sputum Sputum Culture - Final Impressions: Head CT 11/22/17 00:00 IMPRESSION: NORMAL BRAIN CT WITHOUT CONTRAST. EVIDENCE OF ACUTE STROKE: NO. Chest X-Ray 11/23/17 00:00 IMPRESSION: 1. NO ACUTE RADIOGRAPHIC FINDING IN THE CHEST. Modified Barium Swallow 11/23/17 00:00 IMPRESSION: NO EVIDENCE OF PENETRATION OR ASPIRATION. PATIENT REQUIRED MULTIPLE BREAKS DURING THE STUDY DUE TO SHORTNESS OF BREATH.PLEASE SEE SPEECH PATHOLOGIST REPORT FOR OTHER FINDINGS AND RECOMMENDATIONS. Assessment & Plan - Diagnosis (1) Asthma exacerbation Qualifiers: Asthma severity: severe Asthma persistence: unspecified Qualified Code(s) : J45.901 - Unspecified asthma with (acute) exacerbation Is this a current diagnosis for this admission?: Yes Plan: Continues to improve (2) Hypoxia Is this a current diagnosis for this admission?: Yes Plan: Some improvement
[2017-11-24] MEDS: LANSOPRAZOLE 15 MG TAB.RAP.DR PO SCH (17:16)
[2017-11-24] MEDS ORDERED: PREDNISONE 20 MG TABLET PO SCH (18:00)
[2017-11-24] MEDS: LEVALBUTEROL HCL NEB 1.25 MG/3 ML AMPUL NEB PRN (20:01)
[2017-11-25 05:10] LABS: ABSOLUTE LYMPHOCYTES (AUTO) 2.3 10^3/uL (0.5-4.7); ABSOLUTE MONOCYTES (AUTO) 0.8 10^3/uL (0.1-1.4); ABSOLUTE NEUT (AUTO) 7.8 10^3/uL (1.7-8.2); BASOPHILS % (AUTO) 0.3 % (0-2); HEMATOCRIT 36.7 % (36.0-47.0); HEMOGLOBIN 12.9 g/dL (12.0-15.5); LYMPHOCYTES % (AUTO) 21.2 % (13-45); MEAN CORPUSCULAR HEMOGLOBIN 31.6 pg (27.0-33.4); MEAN CORPUSCULAR VOLUME 90 fl (80-97); MONOCYTES % (AUTO) 7.6 % (3-13); PLATELET COUNT 252 10^3/uL (150-450); RED BLOOD COUNT 4.07 10^6/uL (3.72-5.28); RED CELL DISTRIBUTION WIDTH 12.1 % (11.5-14.0); SEGMENTED NEUTROPHILS % (AUTO) 70.9 % (42-78); TOTAL CELLS COUNTED % (AUTO) 100 %
[2017-11-25 05:31] LABS: ANION GAP 12 (5-19); BLOOD UREA NITROGEN 18 mg/dL (7-20); CALCIUM 9.4 mg/dL (8.4-10.2); CARBON DIOXIDE 23 mmol/L (22-30); CHLORIDE 105 mmol/L (98-107); GLUCOSE 112 mg/dL (75-110); SODIUM 139.5 mmol/L (137-145)
[2017-11-25] MEDS: LANSOPRAZOLE 15 MG TAB.RAP.DR PO SCH (05:55)
[2017-11-25] MEDS: LEVALBUTEROL HCL NEB 1.25 MG/3 ML AMPUL NEB PRN (08:01)
[2017-11-25] MEDS: BUDESONIDE NEB 0.5 MG/2 ML AMPUL NEB SCH (08:01)
[2017-11-25 08:21] VITALS: BP 107/67
--- NOTE | 2017-11-25 12:48 | PDOC DISCHARGE SUMMARY ---
General - Admit/Disc Date/PCP Admission Date/Primary Care Provider: 11/21/17 18:48 MARVIN ROGERS MD Discharge Date: 11/25/17 - Discharge Diagnosis (1) Asthma exacerbation Is this a current diagnosis for this admission?: Yes Summary: Currently all resolving (2) Hypoxia Is this a current diagnosis for this admission?: Yes Summary: Due to the above conditions all resolved (3) Sinus tachycardia Is this a current diagnosis for this admission?: Yes Summary: Patient had a echocardiogram was all stable and a CT angiogram is all negative most likely related to the nebulizer treatment is currently all resolved (4) Gastroparesis Is this a current diagnosis for this admission?: Yes Summary: I will outpatients GI continues the Pepcid - Additional Information Discharge Diet: Regular Discharge Activity: Activity As Tolerated Prescriptions: Budesonide [Pulmicort Neb 0.5 mg/2 ml Ampul] 0.5 mg NEB RTQ12 #60 ampul.neb Famotidine [Pepcid 20 mg Tablet] 20 mg PO Q12 #60 tablet Levalbuterol HCl [Xopenex Neb 0.63 mg/3 ml Ampul] 0.63 mg NEB RTQ8HP PRN #90 vial.neb PRN Reason: Nebulizer [Nebulizer Machine] 1 each ASDIR PRN #1 kit PRN Reason: Prednisone [Deltasone 20 mg Tablet] 20 mg PO DAILY #5 tablet Home Medications: Clobetasol Propionate [Clobetasol Propionate Solution] 1 applic TP QPM 11/21/17 Budesonide [Pulmicort Neb 0.5 mg/2 ml Ampul] 0.5 mg NEB RTQ12 #60 ampul.neb 01/31 Famotidine [Pepcid 20 mg Tablet] 20 mg PO Q12 #60 tablet 11/25/17 Levalbuterol HCl [Xopenex Neb 0.63 mg/3 ml Ampul] 0.63 mg NEB RTQ8HP PRN #90 vial.neb 11/25/17 Nebulizer [Nebulizer Machine] 1 each MC ASDIR PRN #1 kit 11/25/17 Prednisone [Deltasone 20 mg Tablet] 20 mg PO DAILY #5 tablet 11/25/17 History of Present Illness History of Present Illness: NETO BOJORQUEZ is a 22 year old female This is a 22-year-old female presents with the shortness of the breath hypoxia and asthma with acute exacerbation of admitting in the hospital for further evaluation Hospital Course Hospital Course: This is a 22-year-old female present in the office with the shortness of the breath and hypoxia and patient sent to the emergency department where patient was found to have asthma with acute exacerbation admitting in the hospital start the patient on IV steroid and nebulizer treatments Patient have a allergies to the albuterol which is related to the tachycardia patient was given Xopenex and was using her Xopenex at home also given little bit elevated the heart rates and the patient's underwent for the CT angiogram was negative for any PE patient also have a 2D echo was done was negative for any acute finding Patient was put on IV steroid and a Pulmicort per the pulmonary is seen Dr. Miller This is a response very well and at this point patient's renal from the on IV to the p.o. medications patients walk in the hallway with the family and the nurses and O2 sat remained 98% on room air patient heart rate is all stable Very extensive discussion with the patient's and the family including the and the mother regarding the patient's current condition and the all the test reports and follow-up with the pulmonary as outpatients Physical Exam Vital Signs: Temp Pulse Resp BP Pulse Ox 98.2 F 70 20 107/67 96 11/25/17 08:53 11/25/17 08:53 11/25/17 08:53 11/25/17 08:53 11/25/17 08:53 Pulse Oximeter Continuous Start: 11/21/17 19: 12 Freq: RTQ4 Status: Discharge Document 11/25/17 08:00 [facility] (Rec: 11/25/17 12:02 [facility] [email or web address]) Pulse Oximetry Assessment Oxygen Saturation (92-100) 98 Oxygen Delivery Method Room Air Equipment Usage Equipment in Use Continuous SpO2 Machine # 8 Intake & Output 11/24/17 11/25/17 11/26/17 06:59 06:59 06:59 Intake Total 2700 1087 Balance 2700 1087 Weight 65.2 kg 65.2 kg General appearance: PRESENT: no acute distress, well-developed, well-nourished Head exam: PRESENT: atraumatic, normocephalic Eye exam: PRESENT: conjunctiva pink, EOMI, PERRLA. ABSENT: scleral icterus Ear exam: PRESENT: normal external ear exam Mouth exam: PRESENT: moist, tongue midline Neck exam: PRESENT: full ROM. ABSENT: carotid bruit, JVD, lymphadenopathy, thyromegaly Respiratory exam: PRESENT: clear to auscultation jon Cardiovascular exam: PRESENT: RRR. ABSENT: diastolic murmur, rubs, systolic murmur Pulses: PRESENT: normal dorsalis pedis pul, +2 pedal pulses bilateral Vascular exam: PRESENT: normal capillary refill GI/Abdominal exam: PRESENT: normal bowel sounds, soft. ABSENT: distended, guarding, mass, organolmegaly, rebound, tenderness Rectal exam: PRESENT: deferred Extremities exam: ABSENT: pedal edema Musculoskeletal exam: PRESENT: ambulatory Neurological exam: PRESENT: alert, awake, oriented to person, oriented to place , oriented to time, oriented to situation, CN II-XII grossly intact. ABSENT: motor sensory deficit Psychiatric exam: PRESENT: appropriate affect, normal mood. ABSENT: homicidal ideation, suicidal ideation Skin exam: PRESENT: dry, intact, warm. ABSENT: cyanosis, rash Results Laboratory Results: 11/25/17 04:01 11/25/17 04:01 11/25/17 11/25/17 04:01 04:01 WBC 11.0 H RBC 4.07 Hgb 12.9 Hct 36.7 MCV 90 MCH 31.6 MCHC 35.0 RDW 12.1 Plt Count 252 Seg Neutrophils % 70.9 Lymphocytes % 21.2 Monocytes % 7.6 Eosinophils % 0.0 Basophils % 0.3 Absolute Neutrophils 7.8 Absolute Lymphocytes 2.3 Absolute Monocytes 0.8 Absolute Eosinophils 0.0 Absolute Basophils 0.0 Sodium 139.5 Potassium 4.0 Chloride 105 Carbon Dioxide 23 Anion Gap 12 BUN 18 Creatinine 0.55 Est GFR ( Amer) > 60 Est GFR (Non-Af Amer) > 60 Glucose 112 H Calcium 9.4 Impressions: Head CT 11/22/17 00:00 IMPRESSION: NORMAL BRAIN CT WITHOUT CONTRAST. EVIDENCE OF ACUTE STROKE: NO. Chest X-Ray 11/23/17 00:00 IMPRESSION: 1. NO ACUTE RADIOGRAPHIC FINDING IN THE CHEST. Chest/Abdomen CTA 11/23/17 00:00 IMPRESSION: NORMAL CTA OF THE CHEST. NO PULMONARY EMBOLI. Modified Barium Swallow 11/23/17 00:00 IMPRESSION: NO EVIDENCE OF PENETRATION OR ASPIRATION. PATIENT REQUIRED MULTIPLE BREAKS DURING THE STUDY DUE TO SHORTNESS OF BREATH.PLEASE SEE SPEECH PATHOLOGIST REPORT FOR OTHER FINDINGS AND RECOMMENDATIONS. Qualifiers - * PATIENT BEING DISCHARGED WITH ANY OF THE FOLLOWING DIAGNOSIS: No VTE patient discharged on overlapping Therapy?: Yes Plan Time Spent: Greater than 30 Minutes - Patient is very stable on discharge follow outpatients pulmonary
== END 2017-11-25 10:05 | disposition home or self-care (01) | DRG 203 ==
LOC: EDBD → ER 17:19 → EH 18:48 → 5 20:41
PROVIDERS: ADMIT Family Medicine; ATTEND Family Medicine
PROC: 3E0F73Z Introduction of Anti-inflammatory into Respiratory Tract, Via Natural or Artificial Opening (ICD-10-PCS; principal; 2017-11-21)
PROC: 3E02340 Introduction of Influenza Vaccine into Muscle, Percutaneous Approach (ICD-10-PCS; 2017-11-25)
DX: J45.901 Unspecified asthma with (acute) exacerbation (principal); R09.02 Hypoxemia; R00.0 Tachycardia, unspecified; T38.0X5A Adverse effect of glucocorticoids and synthetic analogues, initial encounter; K31.84 Gastroparesis; E03.9 Hypothyroidism, unspecified; K21.9 Gastro-esophageal reflux disease without esophagitis; K44.9 Diaphragmatic hernia without obstruction or gangrene; L30.9 Dermatitis, unspecified; Z23 Encounter for immunization; Z88.6 Allergy status to analgesic agent; Z88.8 Allergy status to other drugs, medicaments and biological substances; Z80.9 Family history of malignant neoplasm, unspecified
CPT/HCPCS: 36415; 36600; 70450; 71045; 71046; 71275; 74230; 80048; 82803; 83735; 84439; 84443; 84481; 84703; 85025; 85379; 87040; 87070; 87205; 90471; 90686; 93005; 93010; 93306; 94010; 94640; 94761; 94762; 96365; 99285; G0008; J1650; J2920; J2930; J3475; J3490; J7030; J7512; S0119

== ENCOUNTER → 2018-02-01 | Outpatient (CLI) | payer OTHER ==
--- NOTE | 2018-02-01 09:07 | WOMENS IMAGING REPORT ---
EXAM DESCRIPTION: U/S ABDOMEN LIMITED COMPLETED DATE/TIME: 02/01/2018 8:45 am REASON FOR STUDY: R10.0 R10.0 ACUTE ABDOMEN COMPARISON: None. TECHNIQUE: Dynamic and static grayscale images acquired of the abdomen and recorded on PACS. Additio nal selected color Doppler and spectral images recorded. LIMITATIONS: None. FINDINGS: PANCREAS: No masses. Visualized pancreatic duct normal caliber. LIVER: No masses. Echotexture normal. LIVER VASCULATURE: Normal directional flow of the main portal vein and hepatic veins. GALLBLADDER: No stones. Normal wall thickness. No pericholecystic fluid. ULTRASOUND-DETECTED TYSON'S SIGN: Negative. INTRAHEPATIC DUCTS AND COMMON DUCT: CBD and intrahepatic ducts normal caliber. No filling defects. INFERIOR VENA CAVA: Normal flow. AORTA: No aneurysm. RIGHT KIDNEY: Normal size measuring 9.8 cm. Normal echogenicity. No solid or suspicious masses. No h ydronephrosis. No calcifications. PERITONEAL AND RIGHT PLEURAL SPACE: No ascites or effusions. OTHER: No other significant findings. IMPRESSION: NORMAL RIGHT UPPER QUADRANT ULTRASOUND. TECHNICAL DOCUMENTATION: JOB ID: [id number]- All Rights Reserved Reading location - IP/workstation name: [email or web address]
== END ==
LOC: WI 07:17
PROVIDERS: ATTEND Physician Assistant
DX: R10.0 Acute abdomen (principal)
CPT/HCPCS: 76705

== ENCOUNTER 2018-02-02 12:04 | Emergency (ER) | payer OTHER ==
[2018-02-02] MEDS ORDERED: LIDOCAINE 2% VISCOUS SOLN 20 ML UDCUP PO ONE (12:50)
[2018-02-02] MEDS ORDERED: MAG HYDROX/AL HYDROX/SIMETH SUSP 30 ML UDCUP PO ONE (12:50)
--- NOTE | 2018-02-02 12:53 | ER Document Report ---
ED Medical Screen (RME) - General Chief Complaint: Abdominal Pain Stated Complaint: STOMACH PAIN Time Seen by Provider: 02/02/18 12:46 Notes: 22-year-old female patient past history of irritable bowel syndrome constipation type, and gastroparesis. She has had diarrhea for the past 2 weeks which is quite unusual for her. She has had pain for about 1-1/2 weeks. She reports that she has her pain and diarrhea after eating, but now the pain is present all the time in the epigastric region. LMP was 01/30/2018 and is still on. I have greeted and performed a rapid initial assessment of this patient. A comprehensive ED assessment and evaluation of the patient, analysis of test results and completion of the medical decision making process will be conducted by additional ED providers. TRAVEL OUTSIDE OF THE [place] IN LAST 30 DAYS: No - Related Data Allergies/Adverse Reactions: albuterol Allergy (Verified 11/21/17 17:25) codeine Allergy (Verified 11/21/17 17:25) Past Medical History - Social History Frequency of alcohol use: None Drug Abuse: None Pulmonary Medical History: Reports: Hx Asthma Endocrine Medical History: Reports: Hx Hyperthyroidism, Hx Hypothyroidism Renal/ Medical History: Denies: Hx Peritoneal Dialysis GI Medical History: Reports: Hx Gastroesophageal Reflux Disease, Hx Hiatal Hernia. Denies: Hx Crohn's Disease, Hx Ulcerative Colitis Musculoskeltal Medical History: Denies Hx Fibromyalgia, Denies Hx Gout Skin Medical History: Reports Hx Eczema, Denies Hx Psoriasis Traumatic Medical History: Denies: Hx Gunshot Wound, Hx Pneumothorax, Hx Traumatic Brain Injury Physical Exam - Vital signs Vitals: Temp Pulse Resp BP Pulse Ox 98.8 F 86 14 114/78 98 02/02/18 12:10 02/02/18 12:10 02/02/18 12:10 02/02/18 12:10 02/02/18 12:10 Course - Vital Signs Vital signs: Temp Pulse Resp BP Pulse Ox 98.8 F 86 14 114/78 98 02/02/18 12:10 02/02/18 12:10 02/02/18 12:10 02/02/18 12:10 02/02/18 12:10 Doctor's Discharge - Discharge Referrals: BAYRON BATES PA [Primary Care Provider] - Follow up as needed
[2018-02-02 13:25] LABS: ABSOLUTE EOSINOPHILS # (AUTO) 0.1 10^3/uL (0.0-0.6); ABSOLUTE MONOCYTES (AUTO) 0.5 10^3/uL (0.1-1.4); ABSOLUTE NEUT (AUTO) 3.8 10^3/uL (1.7-8.2); BASOPHILS % (AUTO) 0.5 % (0-2); EOSINOPHILS % (AUTO) 1.1 % (0-6); HEMATOCRIT 36.5 % (36.0-47.0); LYMPHOCYTES % (AUTO) 31.6 % (13-45); MEAN CORPUSCULAR HEMOGLOBIN 31.5 pg (27.0-33.4); MEAN CORPUSCULAR HGB CONC 35.6 g/dL (32.0-36.0); MEAN CORPUSCULAR VOLUME 89 fl (80-97); MONOCYTES % (AUTO) 7.7 % (3-13); PLATELET COUNT 401 10^3/uL (150-450); RED BLOOD COUNT 4.13 10^6/uL (3.72-5.28); RED CELL DISTRIBUTION WIDTH 12.3 % (11.5-14.0); SEGMENTED NEUTROPHILS % (AUTO) 59.1 % (42-78); TOTAL CELLS COUNTED % (AUTO) 100 %; WHITE BLOOD COUNT 6.4 10^3/uL (4.0-10.5)
[2018-02-02 13:28] LABS: APPEARANCE,URINE SLIGHTLY-CLOUDY; BILIRUBIN,URINE NEGATIVE (NEGATIVE); COLOR,URINE YELLOW; GLUCOSE, URINE NEGATIVE (NEGATIVE); KETONES,URINE NEGATIVE (NEGATIVE); LEUKOCYTE ESTERASE,URINE NEGATIVE (NEGATIVE); NITRITE,URINE NEGATIVE (NEGATIVE); PROTEIN,URINE NEGATIVE (NEGATIVE); UROBILINOGEN,URINE NEGATIVE mg/dL (<2.0)
[2018-02-02 13:37] LABS: ALANINE AMINOTRANSFERASE 21 U/L (9-52); ALBUMIN 4.2 g/dL (3.5-5.0); ALKALINE PHOSPHATASE 73 U/L (38-126); ANION GAP 11 (5-19); ASPARTATE AMINO TRANSFERASE 19 U/L (14-36); BILIRUBIN,DIRECT 0.2 mg/dL (0.0-0.4); BILIRUBIN,TOTAL 0.5 mg/dL (0.2-1.3); BLOOD UREA NITROGEN 8 mg/dL (7-20); CALCIUM 9.4 mg/dL (8.4-10.2); CARBON DIOXIDE 26 mmol/L (22-30); CHLORIDE 106 mmol/L (98-107); GLUCOSE 92 mg/dL (75-110); POTASSIUM 3.9 mmol/L (3.6-5.0); SODIUM 142.6 mmol/L (137-145); TOTAL PROTEIN 7.2 g/dL (6.3-8.2)
[2018-02-02] MEDS ORDERED: NORMAL SALINE 1000 ML 1,000 ML IV ONE (14:12)
[2018-02-02] MEDS ORDERED: FAMOTIDINE INJ/PF 20 MG/2 ML SDV IV ONE (14:13)
[2018-02-02] MEDS ORDERED: ONDANSETRON HCL INJ/PF 4 MG/2 ML SDV IV ONE (14:13)
--- NOTE | 2018-02-02 14:18 | ER Document Report ---
ED General - General Chief Complaint: Abdominal Pain Stated Complaint: STOMACH PAIN Time Seen by Provider: 02/02/18 12:46 TRAVEL OUTSIDE OF THE [place] IN LAST 30 DAYS: No - HPI Notes: Patient is a 22-year-old female that presents to the emergency department for chief complaint of abdominal pain and diarrhea. Patient reports epigastric abdominal pain for the last 1-1/2-2 weeks. She was seen on 01/30 by her primary care doctor and started on omeprazole and Zofran. She states that she saw them again yesterday and was given Imodium. These medications have given her some relief. She reports every time she eats she has diarrhea. This is caused her to have decreased appetite and oral intake. She describes an epigastric burning pain that is worse while eating. The pain does get better when she is not eating. She reports nausea with no vomiting. She denies any fevers or chills. She denies any bloody stools. She does have gastroparesis and IBS constipation type. She states diarrhea is very abnormal for her. She does not currently have a GI physician in the area. She denies any recent antibiotics, travel, or hospitalizations. Past Medical History: IBS, gastroparesis Past Surgical History: Reviewed in chart Social History: Denies drugs alcohol and tobacco Family History: Reviewed and noncontributory for presenting illness Allergies: Reviewed, see documented allergy list. REVIEW OF SYSTEMS: CONSTITUTIONAL : No fever No chills No diaphoresis No recent illness EENT: No vision changes No congestion No sore throat CARDIOVASCULAR: No chest pain No palpitations RESPIRATORY: No shortness of breath No cough No difficulty breathing GASTROINTESTINAL: abdominal pain nausea No vomiting diarrhea GENITOURINARY: No dysuria No hematuria No difficulty urinating MUSCULOSKELETAL: No back pain No leg pain No arm pain SKIN: No rashes No lesions LYMPHATIC: No swollen, enlarged glands. NEUROLOGICAL: No lightheadedness No headache No weakness No paresthesias PSYCHIATRIC: No anxiety No depression PHYSICAL EXAMINATION: Vital signs reviewed, nursing noted reviewed. GENERAL: Well-appearing, well-nourished and in no acute distress. HEAD: Atraumatic, normocephalic. EYES: Eyes appear normal, extraocular movements intact, sclera anicteric, conjunctiva are normal. ENT: nares patent, oropharynx clear without exudates. Moist mucous membranes. NECK: Normal range of motion, supple without lymphadenopathy LUNGS: Breath sounds clear to auscultation bilaterally and equal. No wheezes rales or rhonchi. HEART: Regular rate and rhythm without murmurs ABDOMEN: Soft, epigastric tenderness, normoactive bowel sounds. No rebound, gu arding, or rigidity. No masses appreciated. EXTREMITIES: Nontender, good range of motion, no pitting or edema. NEUROLOGICAL: No focal neurological deficits. Moves all extremities spontaneously Motor and sensory grossly intact on exam. PSYCH: Normal mood, normal affect. SKIN: Warm, Dry, normal turgor, no rashes or lesions noted on exposed skin - Related Data Allergies/Adverse Reactions: albuterol Allergy (Verified 11/21/17 17:25) codeine Allergy (Verified 11/21/17 17:25) Past Medical History - Social History Smoking Status: Never Smoker Frequency of alcohol use: None Drug Abuse: None Family History: Malignancy Patient has suicidal ideation: No Patient has homicidal ideation: No Pulmonary Medical History: Reports: Hx Asthma Endocrine Medical History: Reports: Hx Hyperthyroidism, Hx Hypothyroidism Renal/ Medical History: Denies: Hx Peritoneal Dialysis GI Medical History: Reports: Hx Gastroesophageal Reflux Disease, Hx Hiatal Hernia. Denies: Hx Crohn's Disease, Hx Ulcerative Colitis Musculoskeletal Medical History: Denies Hx Fibromyalgia, Denies Hx Gout Skin Medical History: Reports Hx Eczema, Denies Hx Psoriasis Traumatic Medical History: Denies: Hx Gunshot Wound, Hx Pneumothorax, Hx Traumatic Brain Injury Physical Exam - Vital signs Vitals: Temp Pulse Resp BP Pulse Ox 98.8 F 86 14 114/78 98 02/02/18 12:10 02/02/18 12:10 02/02/18 12:10 02/02/18 12:10 02/02/18 12:10 Course - Re-evaluation Re-evalutation: 02/02/18 14:17 Vitals reviewed. Nursing notes reviewed. Patient is afebrile and nontoxic- appearing. I reviewed her right upper quadrant ultrasound from yesterday which showed no acute process. Today her LFTs are normal. She has no leukocytosis. She did have some symptomatic improvement with GI cocktail given in triage but is requesting IV hydration. Patient given IV fluids, Pepcid and Zofran for continued symptomatic management. 02/02/18 15:43 Patient's lab work including lipase is unremarkable KUB shows no obstructive pathology. She has no leukocytosis to suggest infection. She is well hydrated with no electrolyte derangements or renal insufficiency. Patient will continue to follow with her primary care doctor as an outpatient. She was given GI for referral as well. She will return for new or worsening symptoms. She is stable at discharge. Laboratory 02/02/18 02/02/18 02/02/18 13:04 13:07 13:07 WBC 6.4 RBC 4.13 Hgb 13.0 Hct 36.5 MCV 89 MCH 31.5 MCHC 35.6 RDW 12.3 Plt Count 401 Seg Neutrophils % 59.1 Lymphocytes % 31.6 Monocytes % 7.7 Eosinophils % 1.1 Basophils % 0.5 Absolute Neutrophils 3.8 Absolute Lymphocytes 2.0 Absolute Monocytes 0.5 Absolute Eosinophils 0.1 Absolute Basophils 0.0 Sodium 142.6 Potassium 3.9 Chloride 106 Carbon Dioxide 26 Anion Gap 11 BUN 8 Creatinine 0.66 Est GFR ( Amer) > 60 Est GFR (Non-Af Amer) > 60 Glucose 92 Calcium 9.4 Total Bilirubin 0.5 Direct Bilirubin 0.2 Neonat Total Bilirubin Not Reportable Neonat Direct Bilirubin Not Reportable Neonat Indirect Bili Not Reportable AST 19 ALT 21 Alkaline Phosphatase 73 Total Protein 7.2 Albumin 4.2 Lipase Serum HCG, Qual Urine Color YELLOW Urine Appearance SLIGHTLY-CLOUDY Urine pH 5.0 Ur Specific [place] 1.020 Urine Protein NEGATIVE Urine Glucose (UA) NEGATIVE Urine Ketones NEGATIVE Urine Blood LARGE H Urine Nitrite NEGATIVE Urine Bilirubin NEGATIVE Urine Urobilinogen NEGATIVE Ur Leukocyte Esterase NEGATIVE Urine WBC (Auto) 2 Urine RBC (Auto) 60 Urine Bacteria (Auto) TRACE Squamous Epi Cells Auto 7 Urine Mucus (Auto) MANY Urine Ascorbic Acid NEGATIVE 02/02/18 02/02/18 13:07 13:07 WBC RBC Hgb Hct MCV MCH MCHC RDW Plt Count Seg Neutrophils % Lymphocytes % Monocytes % Eosinophils % Basophils % Absolute Neutrophils Absolute Lymphocytes Absolute Monocytes Absolute Eosinophils Absolute Basophils Sodium Potassium Chloride Carbon Dioxide Anion Gap BUN Creatinine Est GFR ( Amer) Est GFR (Non-Af Amer) Glucose Calcium Total Bilirubin Direct Bilirubin Neonat Total Bilirubin Neonat Direct Bilirubin Neonat Indirect Bili AST ALT Alkaline Phosphatase Total Protein Albumin Lipase 133.9 Serum HCG, Qual NEGATIVE Urine Color Urine Appearance Urine pH Ur Specific [place] Urine Protein Urine Glucose (UA) Urine Ketones Urine Blood Urine Nitrite Urine Bilirubin Urine Urobilinogen Ur Leukocyte Esterase Urine WBC (Auto) Urine RBC (Auto) Urine Bacteria (Auto) Squamous Epi Cells Auto Urine Mucus (Auto) Urine Ascorbic Acid KUB X-Ray 02/02/18 14:18 IMPRESSION: NO RADIOGRAPHIC EVIDENCE FOR ACUTE ABDOMINAL DISEASE. - Vital Signs Vital signs: Temp Pulse Resp BP Pulse Ox 98.2 F 84 14 112/75 100 02/02/18 13:46 02/02/18 13:46 02/02/18 13:46 02/02/18 13:46 02/02/18 13:46 - Laboratory Result Diagrams: 02/02/18 13:07 02/02/18 13:07 Laboratory results interpreted by me: 02/02/18 13:04 Urine Blood LARGE H Discharge - Discharge Clinical Impression: Abdominal pain Qualifiers: Abdominal location: epigastric Qualified Code(s): R10.13 - Epigastric pain Condition: Stable Disposition: HOME, SELF-CARE Instructions: Abdominal Pain ([facility]) Additional Instructions: Please return to the emergency department if you have any worsening, or concern of your symptoms. Please return to the emergency department if you develop chest pain, difficulty breathing, severe abdominal pain, or ongoing vomiting. Please follow-up with your primary care physician in 2-3 days and any other recommended physicians. If prescribed, take all medications as directed. If you have any questions or concerns do not hesitate to return the emergency department for evaluation. [] Referrals: CORBY WEIR MD [ACTIVE STAFF] - Follow up in 3-5 days BAYRON BATES PA [Primary Care Provider] - Follow up in 3-5 days
--- NOTE | 2018-02-02 14:39 | RADIOLOGY REPORT (SQ) ---
EXAM DESCRIPTION: KUB/ABDOMEN (SINGLE VIEW) COMPLETED DATE/TIME: 02/02/2018 2:31 pm REASON FOR STUDY: Abdominal pain COMPARISON: None. NUMBER OF VIEWS: One view. TECHNIQUE: Supine radiographic image of the abdomen acquired. LIMITATIONS: None. FINDINGS: BOWEL GAS PATTERN: Normal bowel gas pattern. No dilated loops. CALCIFICATIONS: No suspicious calcifications. SOFT TISSUES: No gross mass or suggestion of organomegaly. HARDWARE: None in the abdomen. BONES: No acute fracture. No worrisome bone lesions. OTHER: No other significant finding. IMPRESSION: NO RADIOGRAPHIC EVIDENCE FOR ACUTE ABDOMINAL DISEASE. TECHNICAL DOCUMENTATION: JOB ID: [id number] [employer]- All Rights Reserved Reading location - IP/workstation name: [email or web address]
[2018-02-02 15:56] VITALS: BP 110/70
== END 2018-02-02 15:56 | disposition home or self-care (01) ==
LOC: ER 12:04
DX: R10.13 Epigastric pain (principal); R19.7 Diarrhea, unspecified
CPT/HCPCS: 99284; 96361; 96374; 96375; 36415; 83690; 84703; 85025; 80053; 81001; 74018; J3490; J2405; J7030; S0028

== ENCOUNTER → 2018-02-06 | Outpatient (CLI) | payer OTHER ==
--- NOTE | 2018-02-06 15:14 | RADIOLOGY REPORT (SQ) ---
EXAM DESCRIPTION: NM HIDA SCAN WITH CCK COMPLETED DATE/TIME: 02/06/2018 2:52 pm REASON FOR STUDY: GENERALIZED ABDOMINAL PAIN R10.84 GENERALIZED ABDOMINAL PAIN COMPARISON: None. RADIONUCLIDE AND DOSE: DOSAGE RADIONUCLIDE: 5.38 millicuries Tc99m Mebrofenin. DOSAGE CCK: 1.3 micrograms. DOSAGE MORPHINE: Not required. The route of agent administration: Intravenous TECHNIQUE: Serial imaging right upper quadrant up to 60 minutes following injection of radionuclide. CCK injected after gallbladder visualized. LIMITATIONS: None. FINDINGS: LIVER: Normal visualization without areas of photopenia. INTRAHEPATIC BILE DUCTS: Normal size and no delay in visualization. COMMON BILE DUCT: Normal without dilatation. GALLBLADDER: Normal visualization. Calculated ejection fraction of 51%. Normal range is greater th an 35%. PHYSICAL RESPONSE: Patients presenting complaint were reproduced. OTHER: No other significant finding. IMPRESSION: 1. NORMAL STUDY WITHOUT CYSTIC OR COMMON DUCT OBSTRUCTION. NORMAL GALLBLADDER EJECTION FRACTION. NO EVIDENCE FOR BILIARY DYSKINESIS. 2. Patient's symptoms were reproduced follow injection of CCK. TECHNICAL DOCUMENTATION: JOB ID: [id number] [employer]- All Rights Reserved Reading location - IP/workstation name: [email or web address]
== END ==
LOC: RAD 12:17
PROVIDERS: ATTEND Physician Assistant
DX: R10.84 Generalized abdominal pain (principal)
CPT/HCPCS: 78227; J2805; A9537; Q9969

== ENCOUNTER 2018-03-06 11:01 | Emergency (ER) | payer OTHER ==
[2018-03-06 11:16] VITALS: BP 123/77
[2018-03-06 12:02] LABS: APPEARANCE,URINE SLIGHTLY-CLOUDY; BILIRUBIN,URINE NEGATIVE (NEGATIVE); COLOR,URINE YELLOW; GLUCOSE, URINE NEGATIVE (NEGATIVE); KETONES,URINE TRACE mg/dL (NEGATIVE); LEUKOCYTE ESTERASE,URINE NEGATIVE (NEGATIVE); NITRITE,URINE NEGATIVE (NEGATIVE); PROTEIN,URINE NEGATIVE (NEGATIVE); URINE SPECIFIC GRAVITY 1.028; UROBILINOGEN,URINE NEGATIVE mg/dL (<2.0)
--- NOTE | 2018-03-06 12:50 | ER Document Report ---
ED General - General Chief Complaint: Abdominal Pain Stated Complaint: ABDOMINAL PAIN Time Seen by Provider: 03/06/18 11:28 Primary Care Provider: BAYRON BATES PA [Primary Care Provider] - Follow up as needed TRAVEL OUTSIDE OF THE [place] IN LAST 30 DAYS: No - HPI Notes: Patient is a 22-year-old female approximately 5 and half weeks by gestation who presents to the emergency department complaining of left lower pelvic pain. Patient states that she just found out a couple days ago that she was at her family doctor's office. Patient states that she is other solis been eating and drinking without difficulty. She is urinating normally and having normal bowel movements. She does not have any abnormal vaginal discharge or vaginal bleeding and has no concern of STD or STI. Patient states that the pain does not radiate. Patient states that she had some skin removed her right upper abdomen, but no other surgical history to her abdomen/pelvis. No other c oncerns or complaints. Denies any headache, fever, neck pain, URI, sore throat, chest pain, palpitations, syncope, cough, shortness of breath, wheeze, dyspnea, nausea/vomiting/diarrhea, urinary retention, dysuria, hematuria, back pain, or rash. - Related Data Allergies/Adverse Reactions: albuterol Allergy (Verified 11/21/17 17:25) codeine Allergy (Verified 11/21/17 17:25) Past Medical History - Social History Smoking Status: Never Smoker Chew tobacco use (# tins/day): No Frequency of alcohol use: None Drug Abuse: None Family History: Malignancy Patient has suicidal ideation: No Patient has homicidal ideation: No Pulmonary Medical History: Reports: Hx Asthma Endocrine Medical History: Reports: Hx Hyperthyroidism, Hx Hypothyroidism Renal/ Medical History: Denies: Hx Peritoneal Dialysis GI Medical History: Reports: Hx Gastroesophageal Reflux Disease, Hx Hiatal Hernia. Denies: Hx Crohn's Disease, Hx Ulcerative Colitis Musculoskeletal Medical History: Denies Hx Fibromyalgia, Denies Hx Gout Skin Medical History: Reports Hx Eczema, Denies Hx Psoriasis Traumatic Medical History: Denies: Hx Gunshot Wound, Hx Pneumothorax, Hx Traumatic Brain Injury Review of Systems - Review of Systems -: Yes All other systems reviewed and negative Physical Exam - Vital signs Vitals: Temp Pulse Resp BP Pulse Ox 98.6 F 91 14 123/77 99 03/06/18 11:15 03/06/18 11:15 03/06/18 11:15 03/06/18 11:15 03/06/18 11:15 - Notes Notes: PHYSICAL EXAMINATION: GENERAL: Well-appearing, well-nourished and in no acute distress. LUNGS: Breath sounds clear to auscultation bilaterally and equal. No wheezes rales or rhonchi. HEART: Regular rate and rhythm without murmurs, rubs, gallops. ABDOMEN: Soft, nondistended abdomen. No guarding, no rebound. No masses appreciated. Normal bowel sounds present. No CVA tenderness bilaterally. + tenderness to the Left lower pelvic. Musculoskeletal: FROM to passive/active. Strength 5+/5. Extremities: No cyanosis, clubbing, or edema b/l. Peripheral pulses 2+. Capillary refill less than 3 seconds. NEUROLOGICAL: Normal speech, normal gait. PSYCH: Normal mood, normal affect. SKIN: Warm, Dry, normal turgor, no rashes or lesions noted. Course - Re-evaluation Re-evalutation: 03/06/18 13:05 Patient is an afebrile, well-hydrated, 34-year-old female who presents to the ED with left pelvic pain and intrauterine . Vitals are acceptable without any significant tachycardia, tachypnea, or hypoxia. PE is otherwise unremarkable. HCG at 1708. TVUS shows evidence of the gest sac w/o sac measuring approx 5wk 1 day. UA unremarkable. Patient is nontoxic-appearing is tolerating p.o. without any difficulties. No other labs or imaging warranted at this time based on H&P. Low suspicion/risk for acute appendicitis, bowel obstruction, acute cholecystitis, acute cholangitis, perforated diverticulitis, incarcerated hernia, pancreatitis, perforated ulcer, peritonitis, sepsis, pelvic inflammatory disease, ectopic , tubo-ovarian abscess, ovarian torsion, or other systemic emergent condition at this time. Patient is aware that her condition can change from initial presentation and she needs to monitor symptoms closely and seek medical attention if any acute changes. Recheck HCG in 2-3 days, may need repeat US next week as well. Conservative measures otherwise for symptoms. Recheck with your PCM/OBGYN in 3-5 days. Return to the ED with any worsening/concerning symptoms otherwise as reviewed in discharge. Patient is in agreement. - Vital Signs Vital signs: Temp Pulse Resp BP Pulse Ox 98.6 F 91 14 123/77 99 03/06/18 11:15 03/06/18 11:15 03/06/18 11:15 03/06/18 11:15 03/06/18 11:15 - Laboratory Laboratory results interpreted by me: 03/06/18 03/06/18 11:38 11:38 Beta HCG, Quant 1708.30 H Urine Ketones TRACE H Discharge - Discharge Clinical Impression: Pelvic pain Qualifiers: Weeks of gestation: less than 8 weeks Qualified Code(s): Z3A.01 - Less than 8 weeks gestation of Condition: Stable Disposition: HOME, SELF-CARE Instructions: Pelvic Pain ([facility]), ([facility]) Additional Instructions: Recheck your HCG in about 2-3 days with a possible repeat ultrasound in 7-10 days. Maintain fluid intake Proper hygienic technique Keep the skin clean Tylenol as needed F/u with your PCM/OBGYN in 3-5 days for a recheck Return to the ED with any development of SALAZAR/fever, trouble with vision, eye redness, worsening pain, urethral discharge, urinary retention, blood in the urine, flank pain, abdominal pain, n/v, Chest Pain, shortness of breath, joint pains, trouble breathing, or any other worsening/concerning symptoms as needed otherwise. Forms: Follow-Up Laboratory Testing Referrals: BAYRON BATES PA [Primary Care Provider] - Follow up in 3-5 days
--- NOTE | 2018-03-06 12:59 | RADIOLOGY REPORT (SQ) ---
EXAM DESCRIPTION: U/S OB TRANSVAGINAL W/O DOP COMPLETED DATE/TIME: 03/06/2018 12:46 pm REASON FOR STUDY: preg, left adnexal pain COMPARISON: None. TECHNIQUE: Transvaginal static and realtime grayscale images acquired of the pelvis. Additional león cted spectral and color Doppler images recorded. All images stored on PACs. bHCG: Not available. CLINICAL DATES: RAYNE: 11/05/2018. EGA: 5 weeks 1 day LIMITATIONS: None. FINDINGS: FETUS: Single Living intrauterine . ULTRASOUND EGA: 5 weeks 1 day ULTRASOUND RAYNE: 11/05/2018 EFW: Not applicable less than 20 weeks. CRL: Not visualized FHR: Not visualized . SURVEY: No visualized anomalies. AMNIOTIC FLUID: Adequate amount. PLACENTA: Not yet developed due to early gestation. SUBCHORIONIC BLEED: No. SIZE OF BLEED: Not applicable. UTERUS: No masses. No anomalies. CERVICAL LENGTH: 3.1 cm. Closed. RIGHT ADNEXA: The right ovary measures 4.5 x 2.6 x 2.6 cm Normal ovary with normal vascular flow. No adnexal free fluid. No adnexal masses. LEFT ADNEXA: The left ovary measures 2.5 x 2.31.4 cm Normal ovary with normal vascular flow. No adnexal free fluid. No adnexal masses. FREE FLUID: None. OTHER: Gestational sac measures 3.6 cm. IMPRESSION: A gestational sac was identified. A pole was not visualized. Correlation suggest ed and follow-up examination in 7 to 10 days for re-evaluation. EGA: 5 weeks 1 day Trimester of : First - 0 to 13 weeks. TECHNICAL DOCUMENTATION: JOB ID: [id number]- All Rights Reserved Reading location - IP/workstation name: [email or web address]
== END 2018-03-06 13:21 | disposition home or self-care (01) ==
LOC: ER 11:01
DX: O26.891 Other specified pregnancy related conditions, first trimester (principal); R10.2 Pelvic and perineal pain; R10.9 Unspecified abdominal pain; O99.411 Diseases of the circulatory system complicating pregnancy, first trimester; J45.909 Unspecified asthma, uncomplicated; Z3A.01 Less than 8 weeks gestation of pregnancy
CPT/HCPCS: 36415; 76817; 81001; 84702; 86900; 86901; 99284

== ENCOUNTER 2018-06-01 11:57 | Emergency (ER) | payer OTHER ==
--- NOTE | 2018-06-01 12:50 | ER Document Report ---
ED Medical Screen (RME) - General Chief Complaint: Syncope Stated Complaint: POSSIBLE SYNCOPE Time Seen by Provider: 06/01/18 12:48 Primary Care Provider: BAYRON BATES PA [Primary Care Provider] - Follow up as needed Notes: 22-year-old 17-week female with history of asthma presents to the emergency department for syncopal episode and abdominal cramping. She was at work, became nauseated, started pacing back and forth and then she states things got "spotty and my boss started looking more distant" and the next thing she knew she woke up. She was told that she hit her head. She currently denies any dizziness, lightheadedness, vision changes, nausea, vomiting. She is having active abdominal cramping. She denies any urinary symptoms. I have greeted and performed a rapid initial assessment of this patient. A comprehensive ED assessment and evaluation of the patient, analysis of test results and completion of medical decision making process will be conducted by an additional ED providers. TRAVEL OUTSIDE OF THE [place] IN LAST 30 DAYS: No - Related Data Allergies/Adverse Reactions: albuterol Allergy (Verified 06/01/18 11:59) codeine Allergy (Verified 06/01/18 11:59) Past Medical History - Social History Chew tobacco use (# tins/day): No Frequency of alcohol use: None Drug Abuse: None Pulmonary Medical History: Reports: Hx Asthma Endocrine Medical History: Reports: Hx Hyperthyroidism, Hx Hypothyroidism Renal/ Medical History: Denies: Hx Peritoneal Dialysis GI Medical History: Reports: Hx Gastroesophageal Reflux Disease, Hx Hiatal Hernia. Denies: Hx Crohn's Disease, Hx Ulcerative Colitis Musculoskeltal Medical History: Denies Hx Fibromyalgia, Denies Hx Gout Skin Medical History: Reports Hx Eczema, Denies Hx Psoriasis Traumatic Medical History: Denies: Hx Gunshot Wound, Hx Pneumothorax, Hx Traumatic Brain Injury Physical Exam - Vital signs Vitals: Temp Pulse Resp BP Pulse Ox 98.2 F 73 16 94/62 L 98 06/01/18 12:10 06/01/18 12:10 06/01/18 12:10 06/01/18 12:10 06/01/18 12:10 Course - Vital Signs Vital signs: Temp Pulse Resp BP Pulse Ox 98.2 F 73 16 94/62 L 98 06/01/18 12:10 06/01/18 12:10 06/01/18 12:10 06/01/18 12:10 06/01/18 12:10 Doctor's Discharge - Discharge Referrals: BAYRON BATES PA [Primary Care Provider] - Follow up as needed
[2018-06-01 13:24] LABS: APPEARANCE,URINE SLIGHTLY-CLOUDY; BILIRUBIN,URINE NEGATIVE (NEGATIVE); COLOR,URINE YELLOW; GLUCOSE, URINE NEGATIVE (NEGATIVE); KETONES,URINE NEGATIVE (NEGATIVE); LEUKOCYTE ESTERASE,URINE TRACE (NEGATIVE); NITRITE,URINE NEGATIVE (NEGATIVE); PROTEIN,URINE NEGATIVE (NEGATIVE); URINE SPECIFIC GRAVITY 1.015; UROBILINOGEN,URINE NEGATIVE mg/dL (<2.0)
[2018-06-01 13:28] LABS: ABSOLUTE EOSINOPHILS # (AUTO) 0.1 10^3/uL (0.0-0.6); ABSOLUTE LYMPHOCYTES (AUTO) 1.5 10^3/uL (0.5-4.7); ABSOLUTE MONOCYTES (AUTO) 0.4 10^3/uL (0.1-1.4); ABSOLUTE NEUT (AUTO) 5.6 10^3/uL (1.7-8.2); BASOPHILS % (AUTO) 0.2 % (0-2); EOSINOPHILS % (AUTO) 1.1 % (0-6); HEMATOCRIT 35.9 % (36.0-47.0); HEMOGLOBIN 12.6 g/dL (12.0-15.5); LYMPHOCYTES % (AUTO) 20.1 % (13-45); MEAN CORPUSCULAR HEMOGLOBIN 31.2 pg (27.0-33.4); MEAN CORPUSCULAR VOLUME 89 fl (80-97); MONOCYTES % (AUTO) 5.1 % (3-13); PLATELET COUNT 264 10^3/uL (150-450); RED BLOOD COUNT 4.02 10^6/uL (3.72-5.28); RED CELL DISTRIBUTION WIDTH 12.7 % (11.5-14.0); SEGMENTED NEUTROPHILS % (AUTO) 73.5 % (42-78); TOTAL CELLS COUNTED % (AUTO) 100 %; WHITE BLOOD COUNT 7.6 10^3/uL (4.0-10.5)
[2018-06-01 13:40] LABS: ALANINE AMINOTRANSFERASE 26 U/L (9-52); ALKALINE PHOSPHATASE 54 U/L (38-126); ANION GAP 7 (5-19); ASPARTATE AMINO TRANSFERASE 16 U/L (14-36); BILIRUBIN,DIRECT 0.2 mg/dL (0.0-0.4); BILIRUBIN,TOTAL 0.2 mg/dL (0.2-1.3); BLOOD UREA NITROGEN 6 mg/dL (7-20); CALCIUM 9.4 mg/dL (8.4-10.2); CARBON DIOXIDE 25 mmol/L (22-30); CHLORIDE 105 mmol/L (98-107); GLUCOSE 91 mg/dL (75-110); POTASSIUM 3.9 mmol/L (3.6-5.0); SODIUM 137.4 mmol/L (137-145)
[2018-06-01] MEDS ORDERED: NORMAL SALINE 1000 ML 1,000 ML IV ONE (14:07)
[2018-06-01] MEDS ORDERED: ACETAMINOPHEN 325 MG TABLET PO ONE (15:03)
--- NOTE | 2018-06-01 15:04 | ER Document Report ---
ED General - General Chief Complaint: Syncope Stated Complaint: POSSIBLE SYNCOPE Time Seen by Provider: 06/01/18 12:48 Primary Care Provider: [facility] [Provider Group] - Follow up as needed BAYRON BATES PA [Primary Care Provider] - Follow up in 3-5 days Notes: Patient is a 22-year-old female, , approximately 17 weeks gravid that presents to the emergency department for chief complaint of syncopal episode. Patient states that she is been having some nausea earlier today, and while she was at work, she was standing talking to her boss, and started feeling lightheaded and got tunnel vision, and then had a brief syncopal episode. She did not vomit, but still has some mild nausea which is much improved now. She is been having abdominal cramping today as well, but again that is more improved at this time. She states more recently she is been using her Xopenex inhaler almost every day, and has been switched to budesonide, due to the pollen, it has been exacerbating her asthma recently. She states her appetite is not been ideal either, and has been decreased, decreased hydration recently. She denies having any dysuria or hematuria, but does state that she frequently gets urinary tract infections. She denies having any recent fevers, chills, night sweats, chest pain, shortness of breath or difficulty breathing. Past Medical History: Asthma, gastroparesis Past Surgical History: Denies surgical history Social History: Denies tobacco, alcohol or drug use. Family History: Reviewed and noncontributory for presenting illness Allergies: Reviewed, see documented allergy list. REVIEW OF SYSTEMS: Other than noted above, the 12 point review of systems was reviewed with the maryam gordon and were negative, all pertinent findings are included in the HPI. PHYSICAL EXAMINATION: Vital signs reviewed, nursing noted reviewed. GENERAL: Well-appearing, well-nourished and in no acute distress. HEAD: Atraumatic, normocephalic. EYES: Eyes appear normal, extraocular movements intact, sclera anicteric, conjunctiva are normal. ENT: nares patent, oropharynx clear without exudates. Moist mucous membranes. NECK: Normal range of motion, supple without lymphadenopathy LUNGS: Breath sounds clear to auscultation bilaterally and equal. No wheezes rales or rhonchi. HEART: Regular rate and rhythm without murmurs ABDOMEN: Soft, nontender, normoactive bowel sounds. No rebound, guarding, or rigidity. No masses appreciated. EXTREMITIES: Nontender, good range of motion, no pitting or edema. NEUROLOGICAL: No focal neurological deficits. Moves all extremities spontaneously Motor and sensory grossly intact on exam. PSYCH: Normal mood, normal affect. SKIN: Warm, Dry, normal turgor, no rashes or lesions noted on exposed skin TRAVEL OUTSIDE OF THE [place] IN LAST 30 DAYS: No - Related Data Allergies/Adverse Reactions: albuterol Allergy (Verified 06/01/18 11:59) codeine Allergy (Verified 06/01/18 11:59) Past Medical History - Social History Smoking Status: Never Smoker Chew tobacco use (# tins/day): No Frequency of alcohol use: None Drug Abuse: None Family History: Malignancy Patient has suicidal ideation: No Patient has homicidal ideation: No Pulmonary Medical History: Reports: Hx Asthma Endocrine Medical History: Reports: Hx Hyperthyroidism, Hx Hypothyroidism Renal/ Medical History: Denies: Hx Peritoneal Dialysis GI Medical History: Reports: Hx Gastroesophageal Reflux Disease, Hx Hiatal Hernia. Denies: Hx Crohn's Disease, Hx Ulcerative Colitis Musculoskeletal Medical History: Denies Hx Fibromyalgia, Denies Hx Gout Skin Medical History: Reports Hx Eczema, Denies Hx Psoriasis Traumatic Medical History: Denies: Hx Gunshot Wound, Hx Pneumothorax, Hx Traumatic Brain Injury Physical Exam - Vital signs Vitals: Temp Pulse Resp BP Pulse Ox 98.0 F 72 16 100/70 100 06/01/18 11:59 06/01/18 11:59 06/01/18 11:59 06/01/18 11:59 06/01/18 11:59 Course - Re-evaluation Re-evalutation: Patient seen and examined vital signs reviewed. Laboratory data and/or imaging were ordered as appropriate for the patient's presenting symptoms and complaint, with consideration of any critical or life threatening conditions that may be associated with their obtained history and exam as noted above. Patient was treated with IV fluids and Tylenol Results were reviewed when available and demonstrated unremarkable blood work, UA, questionable urinary tract infection, will send for culture. OB ultrasound was unremarkable, single live intrauterine The patient was re-evaluated and was stable and improved Evaluation was most consistent with UTI, syncopal episode, advised follow-up with [facility]. Results were discussed with the patient at this point, after careful consideration I feel that that patient can be discharged from the emergency department, the patient was educated treatments and reasons to return to the emergency department based on their presumed diagnosis as noted above, they were advised to followup with a primary care physician in 2-3 days. Patient was agreeable to plan of care. *Note is created using voice recognition software and may contain spelling, syntax or grammatical errors. Laboratory 06/01/18 06/01/18 06/01/18 13:01 13:01 13:01 WBC 7.6 RBC 4.02 Hgb 12.6 Hct 35.9 L MCV 89 MCH 31.2 MCHC 35.0 RDW 12.7 Plt Count 264 Seg Neutrophils % 73.5 Lymphocytes % 20.1 Monocytes % 5.1 Eosinophils % 1.1 Basophils % 0.2 Absolute Neutrophils 5.6 Absolute Lymphocytes 1.5 Absolute Monocytes 0.4 Absolute Eosinophils 0.1 Absolute Basophils 0.0 Sodium 137.4 Potassium 3.9 Chloride 105 Carbon Dioxide 25 Anion Gap 7 BUN 6 L Creatinine 0.40 L Est GFR ( Amer) > 60 Est GFR (Non-Af Amer) > 60 Glucose 91 Calcium 9.4 Total Bilirubin 0.2 Direct Bilirubin 0.2 Neonat Total Bilirubin Not Reportable Neonat Direct Bilirubin Not Reportable Neonat Indirect Bili Not Reportable AST 16 ALT 26 Alkaline Phosphatase 54 Total Protein 7.0 Albumin 4.0 Beta HCG, Quant Total Beta HCG Urine Color YELLOW Urine Appearance SLIGHTLY-CLOUDY Urine pH 7.0 Ur Specific [place] 1.015 Urine Protein NEGATIVE Urine Glucose (UA) NEGATIVE Urine Ketones NEGATIVE Urine Blood NEGATIVE Urine Nitrite NEGATIVE Urine Bilirubin NEGATIVE Urine Urobilinogen NEGATIVE Ur Leukocyte Esterase TRACE H Urine WBC (Auto) 7 Urine RBC (Auto) 2 U Hyaline Cast (Auto) 2 Urine Bacteria (Auto) 2+ Squamous Epi Cells Auto 3 Urine Mucus (Auto) MANY Urine Ascorbic Acid NEGATIVE 06/01/18 13:01 WBC RBC Hgb Hct MCV MCH MCHC RDW Plt Count Seg Neutrophils % Lymphocytes % Monocytes % Eosinophils % Basophils % Absolute Neutrophils Absolute Lymphocytes Absolute Monocytes Absolute Eosinophils Absolute Basophils Sodium Potassium Chloride Carbon Dioxide Anion Gap BUN Creatinine Est GFR ( Amer) Est GFR (Non-Af Amer) Glucose Calcium Total Bilirubin Direct Bilirubin Neonat Total Bilirubin Neonat Direct Bilirubin Neonat Indirect Bili AST ALT Alkaline Phosphatase Total Protein Albumin Beta HCG, Quant 17871.00 H Total Beta HCG POSITIVE Urine Color Urine Appearance Urine pH Ur Specific [place] Urine Protein Urine Glucose (UA) Urine Ketones Urine Blood Urine Nitrite Urine Bilirubin Urine Urobilinogen Ur Leukocyte Esterase Urine WBC (Auto) Urine RBC (Auto) U Hyaline Cast (Auto) Urine Bacteria (Auto) Squamous Epi Cells Auto Urine Mucus (Auto) Urine Ascorbic Acid Obstetrics Ultrasound 06/01/18 12:50 IMPRESSION: LIVING INTRAUTERINE . ESTIMATED GESTATIONAL AGE 17 weeks 1 day NO VISUALIZED ANOMALIES. Trimester of : Second trimester - 13 weeks 1 day to 27 weeks 6 days. - Vital Signs Vital signs: Temp Pulse Resp BP Pulse Ox 98.2 F 73 16 94/62 L 98 06/01/18 12:10 06/01/18 12:10 06/01/18 12:10 06/01/18 12:10 06/01/18 12:10 - Laboratory Result Diagrams: 06/01/18 13:01 06/01/18 13:01 Laboratory results interpreted by me: 06/01/18 06/01/18 06/01/18 13:01 13:01 13:01 Hct 35.9 L BUN 6 L Creatinine 0.40 L Beta HCG, Quant Ur Leukocyte Esterase TRACE H 06/01/18 13:01 Hct BUN Creatinine Beta HCG, Quant 73393.00 H Ur Leukocyte Esterase Discharge - Discharge Clinical Impression: Syncope Qualifiers: Syncope type: unspecified Qualified Code(s): R55 - Syncope and collapse UTI (urinary tract infection) Qualifiers: Urinary tract infection type: site unspecified Hematuria presence: without h ematuria Qualified Code(s): N39.0 - Urinary tract infection, site not specified Condition: Stable Disposition: HOME, SELF-CARE Instructions: Urinary Tract Infection ([facility]) Additional Instructions: Please complete the entire course of antibiotics, please follow-up with your [facility], in the next few days. Try to maintain your hydration as best as possible at home. Prescriptions: Cephalexin Monohydrate [Keflex 500 mg Capsule] 500 mg PO BID 5 Days #10 capsule Forms: Return to Work Referrals: BAYRON BATES PA [Primary Care Provider] - Follow up in 3-5 days [facility] [Provider Group] - Follow up as needed
--- NOTE | 2018-06-01 15:47 | RADIOLOGY REPORT (SQ) ---
EXAM DESCRIPTION: U/S OB 14+ TA/1 GEST W/DOPPLER COMPLETED DATE/TIME: 06/01/2018 3:37 pm REASON FOR STUDY: abdominal cramping, syncope gestation of 17 weeks 4 days by dates COMPARISON: None. TECHNIQUE: Static and Dynamic grayscale imaging performed of gravid uterus using transabdominal appr oach. Additional selected color Doppler and spectral images recorded. All stored on PACS. LIMITATIONS: None. FINDINGS: FETUSES SEEN:1 EGA: 17 weeks 1 day Calculated using BPD,FL,HC,AC documented on images. No discrepancy with clinical dates. RAYNE: 11/08/2018 EFW: 178 grams PERCENTILE: Not calculated RAMON: 13.8 cm PLACENTA: Posterior grade 1 PRESENTATION: Cephalic. ANATOMY: HEART RATE: 140 beats per minute. FOUR CHAMBER HEART: Visualized. THREE VESSEL CORD: Yes. CORD INSERTION: Visualized. KIDNEYS AND BLADDER: Visualized. Appear normal. STOMACH: Visualized. Appears normal. SPINE: Normal as visualized. BRAIN AND LATERAL VENTRICLES: Visualized. Appear normal. OTHER: No other significant finding. MATERNAL ADNEXA: Maternal ovaries not visualized. CERVICAL LENGTH: 2.5 cm Closed. OTHER: No other significant finding. IMPRESSION: LIVING INTRAUTERINE . ESTIMATED GESTATIONAL AGE 17 weeks 1 day NO VISUALIZED ANOMALIES. Trimester of : Second trimester - 13 weeks 1 day to 27 weeks 6 days. TECHNICAL DOCUMENTATION: JOB ID: [id number] [employer]- All Rights Reserved Reading location - IP/workstation name: [email or web address]
[2018-06-01 16:13] VITALS: BP 105/71
== END 2018-06-01 16:13 | disposition home or self-care (01) ==
LOC: ER 11:57
DX: O23.42 Unspecified infection of urinary tract in pregnancy, second trimester (principal); O99.352 Diseases of the nervous system complicating pregnancy, second trimester; R55 Syncope and collapse; O26.892 Other specified pregnancy related conditions, second trimester; R11.0 Nausea; R10.9 Unspecified abdominal pain; Z3A.17 17 weeks gestation of pregnancy; O99.512 Diseases of the respiratory system complicating pregnancy, second trimester; J45.909 Unspecified asthma, uncomplicated
CPT/HCPCS: 99284; 96360; 96361; 36415; 87086; 84702; 85025; 80053; 81001; 76805; 93976; J7030

== ENCOUNTER 2018-08-29 15:28 | Emergency (ER) | payer OTHER ==
[2018-08-29] MEDS ORDERED: NORMAL SALINE 1000 ML 1,000 ML IV ONE (15:41)
[2018-08-29 16:16] LABS: ABSOLUTE EOSINOPHILS # (AUTO) 0.1 10^3/uL (0.0-0.6); ABSOLUTE LYMPHOCYTES (AUTO) 1.6 10^3/uL (0.5-4.7); ABSOLUTE MONOCYTES (AUTO) 0.5 10^3/uL (0.1-1.4); ABSOLUTE NEUT (AUTO) 5.6 10^3/uL (1.7-8.2); BASOPHILS % (AUTO) 0.1 % (0-2); HEMOGLOBIN 12.2 g/dL (12.0-15.5); MEAN CORPUSCULAR HEMOGLOBIN 32.4 pg (27.0-33.4); MEAN CORPUSCULAR VOLUME 93 fl (80-97); MONOCYTES % (AUTO) 6.7 % (3-13); PLATELET COUNT 291 10^3/uL (150-450); RED BLOOD COUNT 3.78 10^6/uL (3.72-5.28); RED CELL DISTRIBUTION WIDTH 12.9 % (11.5-14.0); SEGMENTED NEUTROPHILS % (AUTO) 72.2 % (42-78); TOTAL CELLS COUNTED % (AUTO) 100 %; WHITE BLOOD COUNT 7.8 10^3/uL (4.0-10.5)
[2018-08-29 16:42] LABS: ALANINE AMINOTRANSFERASE 19 U/L (9-52); ALBUMIN 3.5 g/dL (3.5-5.0); ALKALINE PHOSPHATASE 91 U/L (38-126); ANION GAP 7 (5-19); ASPARTATE AMINO TRANSFERASE 20 U/L (14-36); BILIRUBIN,DIRECT 0.2 mg/dL (0.0-0.4); BILIRUBIN,TOTAL 0.3 mg/dL (0.2-1.3); BLOOD UREA NITROGEN 5 mg/dL (7-20); CARBON DIOXIDE 24 mmol/L (22-30); CHLORIDE 106 mmol/L (98-107); CREATINE KINASE 31 U/L (30-135); GLUCOSE 109 mg/dL (75-110); POTASSIUM 3.6 mmol/L (3.6-5.0); SODIUM 137.4 mmol/L (137-145); TOTAL PROTEIN 6.4 g/dL (6.3-8.2)
[2018-08-29 16:54] LABS: CREATINE KINASE MB < 0.22 ng/mL (<4.55); TROPONIN I < 0.012 ng/mL
--- NOTE | 2018-08-29 18:45 | EKG REPORT ---
SEVERITY:- BORDERLINE ECG - SINUS RHYTHM INFERIOR Q WAVES, PROBABLY NORMAL VARIATION : Confirmed by: Adonay Gaytan MD 29-Aug-2018 18:44:53
[2018-08-29 18:48] LABS: APPEARANCE,URINE SLIGHTLY-CLOUDY; BILIRUBIN,URINE NEGATIVE (NEGATIVE); COLOR,URINE YELLOW; GLUCOSE, URINE NEGATIVE (NEGATIVE); KETONES,URINE NEGATIVE (NEGATIVE); LEUKOCYTE ESTERASE,URINE NEGATIVE (NEGATIVE); NITRITE,URINE NEGATIVE (NEGATIVE); PROTEIN,URINE NEGATIVE (NEGATIVE); URINE SPECIFIC GRAVITY 1.012; UROBILINOGEN,URINE NEGATIVE mg/dL (<2.0)
--- NOTE | 2018-08-29 19:53 | ER Document Report ---
ED Syncope and Near Syncope - General Chief Complaint: Syncope Stated Complaint: SYNCOPE Time Seen by Provider: 08/29/18 15:41 Primary Care Provider: BAYRON BATES PA [Primary Care Provider] - Follow up as needed Mode of Arrival: Medic Information source: Patient Notes: Patient is a 22-year-old female presenting to the emergency department from her doctor's office after having a syncopal episode. Patient is 30 weeks . Patient has a history of vasovagal syncope that was diagnosed at 14 weeks gestation. She states that she passes at least once a week. Today she passed out while at the pulling unit operator office so he sent her to the emergency department . She is seen by rn corrections, Dr. Hernandez. She has been placed on bedrest due to her multiple syncopal episodes and told that hopefully when she delivers the baby these things will resolve. She denies striking her head today, denies any injuries or complaints. TRAVEL OUTSIDE OF THE [place] IN LAST 30 DAYS: No - Related Data Allergies/Adverse Reactions: albuterol Allergy (Verified 06/01/18 11:59) codeine Allergy (Verified 06/01/18 11:59) Past Medical History - General Information source: Patient - Social History Smoking Status: Never Smoker Frequency of alcohol use: None Drug Abuse: None Family History: Malignancy Patient has suicidal ideation: No Patient has homicidal ideation: No Pulmonary Medical History: Reports: Hx Asthma Endocrine Medical History: Reports: Hx Hyperthyroidism, Hx Hypothyroidism Renal/ Medical History: Denies: Hx Peritoneal Dialysis GI Medical History: Reports: Hx Gastroesophageal Reflux Disease, Hx Hiatal Hernia. Denies: Hx Crohn's Disease, Hx Ulcerative Colitis Musculoskeletal Medical History: Denies Hx Fibromyalgia, Denies Hx Gout Skin Medical History: Reports Hx Eczema, Denies Hx Psoriasis Traumatic Medical History: Denies: Hx Gunshot Wound, Hx Pneumothorax, Hx Traumatic Brain Injury Review of Systems - Review of Systems Constitutional: No symptoms reported EENT: No symptoms reported Cardiovascular: No symptoms reported Respiratory: No symptoms reported Gastrointestinal: No symptoms reported Genitourinary: No symptoms reported Female Genitourinary: No symptoms reported Musculoskeletal: No symptoms reported Skin: No symptoms reported Hematologic/Lymphatic: No symptoms reported Neurological/Psychological: No symptoms reported Physical Exam - Vital signs Vitals: Pulse Resp BP Pulse Ox 91 17 102/66 96 08/29/18 15:35 08/29/18 15:35 08/29/18 15:35 08/29/18 15:35 - Notes Notes: PHYSICAL EXAMINATION: GENERAL: Well-appearing, well-nourished and in no acute distress. HEAD: Atraumatic, normocephalic. EYES: Pupils equal round and reactive to light, extraocular movements intact, conjunctiva are normal. ENT: Nares patent, oropharynx clear without exudates. Moist mucous membranes. NECK: Normal range of motion, supple without lymphadenopathy LUNGS: Breath sounds clear to auscultation bilaterally and equal. No wheezes rales or rhonchi. HEART: Regular rate and rhythm without murmurs ABDOMEN: Soft, nontender, nondistended abdomen. No guarding, no rebound. No masses appreciated. Female : deferred Musculoskeletal: Normal range of motion, no pitting or edema. No cyanosis. NEUROLOGICAL: Cranial nerves grossly intact. Normal speech, normal gait. Normal sensory, motor exams PSYCH: Normal mood, normal affect. SKIN: Warm, Dry, normal turgor, no rashes or lesions noted. Course - Re-evaluation Re-evalutation: Physical examination is unremarkable. Patient appears well, nontoxic is alert, oriented and interactive. All laboratory studies are unremarkable. heart tones were obtained and were 136 bpm. She denies any direct trauma to her abdomen or head. Will discharge patient home at this time. - Vital Signs Vital signs: Temp Pulse Resp BP Pulse Ox 91 19 100/66 98 08/29/18 15:35 08/29/18 19:02 08/29/18 19:02 08/29/18 19:02 - Laboratory Result Diagrams: 08/29/18 15:54 08/29/18 15:54 Laboratory results interpreted by me: 08/29/18 08/29/18 15:54 15:54 Hct 35.0 L BUN 5 L Creatinine 0.34 L - EKG Interpretation by Or EKG shows normal: Sinus rhythm Rate: Normal Rhythm: NSR Additional EKG results interpreted by me: EKG was reviewed by ne shows a sinus rhythm, rate of 78, QTc 438, normal axis and no ST segment elevations or depressions Discharge - Discharge Clinical Impression: Vasovagal syncope Condition: Stable Disposition: HOME, SELF-CARE Additional Instructions: Please keep all follow-up appointments you have with your primary care provider and [employer] [facility]. Continue to have bed rest other than going to doctor's appointments. Return to the emergency department for any new or worsening symptoms. Referrals: BAYRON BATES PA [Primary Care Provider] - Follow up as needed
[2018-08-29 20:27] VITALS: BP 102/64
== END 2018-08-29 20:00 | disposition home or self-care (01) ==
LOC: ER 15:28
DX: O26.893 Other specified pregnancy related conditions, third trimester (principal); R55 Syncope and collapse; O99.513 Diseases of the respiratory system complicating pregnancy, third trimester; J45.909 Unspecified asthma, uncomplicated; Z3A.30 30 weeks gestation of pregnancy; Z88.8 Allergy status to other drugs, medicaments and biological substances; Z88.5 Allergy status to narcotic agent
CPT/HCPCS: 93005; 99284; 96360; 36415; 82553; 82962; 82550; 85025; 80053; 81001; 84484; 93010; J7030